=== PATIENT | female | born 1955 | race Caucasian/White ===

== ENCOUNTER 2017-03-06 11:15 | Inpatient (IN) | payer OTHER ==
--- NOTE | 2017-02-28 18:47 | HP ---
HISTORY AND PHYSICAL: DATE OF SURGERY: 03/06/17 DATE OF OFFICE VISIT: 02/26/17 ATTENDING SURGEON: Do Sierra MD * (DICTATED BY NICOLAS MACARIO) PROCEDURE: Left total knee arthroplasty. CHIEF COMPLAINT: Left knee pain. HISTORY OF PRESENT ILLNESS: Ms. Epps is a 61-year-old female with complaints of left knee pain secondary to advanced osteoarthritis. She has failed conservative management and elected to proceed with a left total knee arthroplasty, which is scheduled for 03/06/[address] Sierra. PAST MEDICAL HISTORY: Diabetes, hypertension, high cholesterol, history of breast cancer, and depression. PAST SURGICAL HISTORY: Tonsillectomy, lumpectomy x2, hernia repair, hysterectomy, and tubal ligation. CURRENT MEDICATIONS: 1. Lipitor 20 mg daily. 2. Meloxicam 50 mg daily. 3. Tramadol as needed. 4. Metformin 500 mg daily. 5. Olmesartan/hydrochlorothiazide 20/12.5 mg daily. 6. Tylenol p.r.n. ALLERGIES: To PENICILLIN. FAMILY HISTORY: Colon cancer, diabetes, hypertension. 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 She does not smoke, use drugs or alcohol. REVIEW OF SYSTEMS: A complete 14 point review of systems was reviewed with the patient. It is positive for diabetes. She denies history of DVT, PE, hepatitis C, HIV or MRSA. PHYSICAL EXAMINATION GENERAL: She is well developed, well nourished, no acute distress. VITAL SIGNS: She stands 5 feet 2 inches tall, weighs 265 pounds, blood pressure 132/82, and her heart rate is 76. HEENT: Normocephalic, atraumatic. NECK: Supple. No palpable lymph nodes. CARDIAC: Regular rate and rhythm. Strong S1, S2. PULMONARY: The lungs are clear to auscultation bilaterally. ABDOMEN: Soft, nontender, nondistended. MUSCULOSKELETAL: Left lower extremity skin is intact. No open wounds or abrasions. 10 to 120 degrees of flexion. No varus or valgus instability. Tenderness over the medial joint line. 5/5 lower extremity strength. Intact sensation and 2+ dorsalis pedis pulses. NEUROLOGICAL: Alert and oriented x3. Cranial nerves II through XII are intact. ASSESSMENT AND PLAN: Ms. Epps is a 61-year-old female with complaints of left knee pain secondary to advanced osteoarthritis. She has failed conservative management and elected to proceed with a left total knee arthroplasty, which is scheduled for 03/06/[address] Sierra discussed the risks and benefits of the surgery and all of her questions were answered. Coumadin, Percocet, and Colace were sent to her pharmacy for postoperative pain control and DVT prophylaxis. She will see Dr. Sierra back 2 weeks after the surgery. NICOLAS MACARIO [id number]/[facility] #: [id number] [facility] HAYES HOSPITALJuan M
[~2017-03-06 11:15] MED LIST: Buffered Lidocaine 0.9% SYRIN* 5 ML/SYR SYRINGE INTRADERM ONE; Buffered Lidocaine 0.9% SYRIN* 5 ML/SYR SYRINGE ONE; Clindamycin 900 MG IVPREMIX(* 900 MG/50 ML SDV IV ONE; DiMENhydriNATE IV* 50 MG/ML VIAL IV PUSH PRN; Famotidine IV* 10 MG/ML 2 ML (20 mg) IV ONE; Famotidine IV* 10 MG/ML 2 ML (20 mg) ONE; PROCHLORPERAZINE INJ 5 MG/ML 2 ML VIAL IV PRN; Scopolamine 1.5 mg* PATCH TRANSDERM PRN
[2017-03-06] MEDS ORDERED: Midazolam* 1 MG/ML 5 ML VIAL (5 MG) ONE (12:21)
[2017-03-06] MEDS ORDERED: KETAMINE HCL* 50 MG/ML 10 ML VIAL ONE (12:21)
[2017-03-06] MEDS ORDERED: fentaNYL* 50 MCG/ML 2 ML VIAL (100 MCG VIAL) ONE ×3 (12:21→18:16)
[2017-03-06] MEDS ORDERED: Morphine PF AMP (0.5MG/ML)* 5 MG/10 ML AMP ONE (12:21)
[2017-03-06] MEDS ORDERED: Midazolam* 1 MG/ML 2 ML VIAL (2 MG) ONE (13:59)
[2017-03-06] MEDS ORDERED: Bupivacaine 0.25% SDV* 30 ML ONE (14:22)
[2017-03-06] MEDS ORDERED: PROCHLORPERAZINE INJ 5 MG/ML 2 ML VIAL ONE (14:22)
[2017-03-06] MEDS ORDERED: Lidocaine 2% PF * 5 ML VIAL ONE (14:22)
[2017-03-06] MEDS ORDERED: Ondansetron INJ* 2 MG/ML VIAL ONE (14:22)
[2017-03-06] MEDS ORDERED: Propofol* 10 MG/ML 20 ML BTL IV PUSH ONE (14:22)
[2017-03-06] MEDS ORDERED: Morphine INJ* 10 MG/ML 1 ML CARPUJECT ONE ×2 (14:26→18:16)
[2017-03-06] MEDS ORDERED: Bisacodyl SUPP* 10 MG SUPP PR PRN (16:32)
[2017-03-06] MEDS ORDERED: Ondansetron INJ* 2 MG/ML VIAL IV PRN (16:32)
[2017-03-06] MEDS ORDERED: Morphine INJ* 2 MG/ML 1 ML SYRINGE (TWO MG - NEW SYRINGE VERSION) IV PRN (16:32)
[2017-03-06] MEDS ORDERED: oxyCODONE/Acetamin 5/325 MG* TAB PO PRN (16:32)
[2017-03-06] MEDS ORDERED: Ondansetron TAB* 4 MG PO PRN (16:32)
[2017-03-06] MEDS ORDERED: diPHENhydraMINE IV* 50 MG/ML 1 ml VIAL (BENADRYL) IV PRN (16:32)
[2017-03-06] MEDS ORDERED: Polyethylene Glycol 3350* 17 GM PACKET PO PRN (16:32)
[2017-03-06] MEDS ORDERED: Acetaminophen TAB* 325 MG PO PRN (16:32)
[2017-03-06] MEDS ORDERED: Cyclobenzaprine TAB* 10 MG PO PRN (16:36)
[2017-03-06] MEDS ORDERED: Phenylephrine INJ* 10 MG/ML 1 ML VIAL (10 MG) ONE (16:45)
[2017-03-06] MEDS ORDERED: Ketorolac INJ* 30 MG/ML 1 ML VIAL ONE (17:27)
[2017-03-06] MEDS ORDERED: oxyCODONE/Acetamin 5/325 MG* TAB ONE (18:16)
[2017-03-06] MEDS ORDERED: Dextrose 50% Syringe 50 ML* 25 GM/50 ML SYRINGE IV PUSH PRN (18:20)
[2017-03-06] MEDS: fentaNYL* 50 MCG/ML 2 ML VIAL (100 MCG VIAL) IV PRN ×4 (18:25→19:59)
[2017-03-06] MEDS: Morphine INJ* 2 MG/ML 1 ML CARPUJECT IV PRN ×2 (18:45→19:07)
--- NOTE | 2017-03-06 19:25 | RAD ---
INDICATION: Left total knee arthroplasty COMPARISON: Preoperative knee radiograph January 01, 2017 TECHNIQUE: 2 views of the left knee and 2 views of the left tibia were obtained. FINDINGS: There is been interval placement of an anatomically aligned left knee prosthesis. A surgical drain is noted. The visualized bones are intact and appropriately aligned. IMPRESSION: Anatomic alignment of recently installed left knee prosthesis with expected postsurgical changes.
--- NOTE | 2017-03-06 20:05 | RAD ---
CPT II Codes: 6045F INDICATION: Left knee arthroplasty TECHNIQUE: Intraoperative fluoroscopy was provided during left knee arthroplasty. FINDINGS: 4 spot films depict a left knee prosthesis. Fluoroscopy time: 5.3 seconds IMPRESSION: As above.
[2017-03-06] MEDS: Docusate CAP* 100 MG PO SCH (20:46)
[2017-03-06] MEDS ORDERED: Warfarin TAB(*) 6 MG PO ONE (21:00)
--- NOTE | 2017-03-06 21:56 | CONS ---
CC: Dr. Champion; Dr. Sierra * CONSULTATION REPORT: DATE OF CONSULT: 03/06/17 PRIMARY CARE PROVIDER: Dr. Champion. REQUESTING PHYSICIAN: Dr. Sierra. ATTENDING PHYSICIAN WHILE IN THE HOSPITAL: Rashawn Cheung MD (report dictated by Hossein Plascencia NP) REASON FOR MEDICAL CONSULT: Evaluation and medical management of comorbid medical conditions. HISTORY OF PRESENT ILLNESS: I will refer you to Dr. Sierra's H and P for further details. In short, Ms. Epps is a 61-year-old female patient who has a history of morbid obesity, diabetes, back pain, depression, breast cancer, hyperlipidemia, and hypertension, who came in to the care of Dr. Sierra's service because she was experiencing a significant amount of left knee pain. The patient had failed conservative therapy and it was felt that she would benefit from a total knee replacement which she underwent today. The patient was evaluated in the PACU. She states that her knee feels tight and she does feel a little lightheaded, but she denies having any chest pain. She denies having any shortness of breath. She denies having any abdominal pain. She denies feeling nauseated. She states she does not feel chest pain. She states that she is feeling well. She states she is just having some pain in her knee. She did undergo general anesthesia with a nerve block. Because of her medical complexity, we were asked to evaluate in consult. PAST MEDICAL HISTORY: Significant for: 1. Diabetes. 2. Breast cancer. 3. Hyperlipidemia. 4. Hypertension. 5. Back pain. 6. Depression. PAST SURGICAL HISTORY: She has had a total abdominal hysterectomy with bilateral salpingo-oophorectomy, tonsillectomy, lumpectomy, hernia repair and recently today had left total knee replacement. HOME MEDICATIONS: According to the list that was provided preoperatively includes: 1. Tramadol one to two tablets every 6 hours as needed. 2. Glucophage 500 mg daily. 3. Olmesartan/amlodipine one tablet p.o. daily. 4. Mobic 15 mg p.o. daily. 5. Lipitor 20 mg daily. 6. Tylenol two tablets p.o. b.i.d. as needed. ALLERGIES: To medications include PENICILLIN. FAMILY HISTORY: Mother had a history of diabetes. Father had colon cancer. SOCIAL HISTORY: She does not smoke, does not drink. Surrogate decision maker is her son, Rey. REVIEW OF SYSTEMS: There is no documented fever. She denied having any significant weight change. No double vision. No ear discharge. No rhinorrhea. No sore throat. No thyroid enlargement. Denied having any chest pain. There was no orthopnea, no nocturnal dyspnea. There is no abdominal pain. No nausea or vomiting. No dysuria, no frequency. There has been no seizure. No loss of consciousness. No pruritus and no skin ulcerations. Review of 14 systems completed, all others negative. PHYSICAL EXAM: Vital Signs: Blood pressure initially preop was 152/82 with pulse 80, respirations 18, O2 sat 96%, temperature 96.8. Blood pressure now is 103/70 with pulse of 60, respirations 12, O2 sat 100% on 2 L. General: At this time, Ms. Epps is a 61-year-old female patient. She is sitting in the PACU bed. She does not appear to be in any acute distress. She will awaken to her name. She is alert and oriented x3. She appears well nourished, well developed. HEENT: Head is atraumatic, normocephalic. Eyes: EOMs intact. Sclerae anicteric, not pale. Throat: Oral mucosa appears to be moist. No oropharyngeal erythema. Neck: Supple. Lungs: Clear to auscultation bilaterally. No wheezes, rales, or rhonchi. Heart: Sounds, S1 S2. Regular rate and rhythm. No murmurs, rubs, or gallops. Abdomen: Soft, flat. Bowel sounds were hypoactive. Extremities: Pulses were 2+ throughout. She is able to move the upper extremities with 5/5 strength. She does have distal CSM checks intact to the left lower extremity. Neurologically, she is drowsy, but she awakens to her name. She is alert, she is oriented. When she does awaken, she is oriented x3. Auto Parker equal. Tongue midline. No gross focal motor deficits. Skin: Intact with the exception she has an incision to the left knee which is covered with BELLE dressing. Hemovac drain intact. Skin is otherwise grossly intact. DIAGNOSTIC STUDIES/LAB DATA: Preop: WBC of 7.4, RBC of 4.8, serial hemoglobin 13.2, hematocrit of 41, and platelet count of 274,000. INR 0.91. Sodium 138, potassium is 3.6, chloride of 102, bicarb 27. BUN 18. Creatinine 0.84. Glucose of 88. Urine preop negative. She did have a preop EKG, difficult tracing because its scanned but it shows sinus rhythm. No gross ST elevations or T-wave inversions. Chest x-ray preop showed possible infiltrate in the medial right lung base versus pericardial fat pad suggested on lateral chest x-ray. Old medical records reviewed. ASSESSMENT AND PLAN: Ms. Epps is a 61-year-old female patient coming into the orthopedic services today for elective total knee replacement. We were asked to evaluate in consult due to the medical complexity and our recommendations at this point are: 1. Status post left total knee replacement. I will defer the management of this to Dr. Sierra and her team. 2. Diabetes. We will put her on lispro sliding scale. 3. Chronic pain. She has p.r.n. narcotics made available to her. 3. Depression. Supportive care will be maintained. 4. History of breast cancer. Follow up with primary. 5. Hyperlipidemia. Continue statin therapy. 6. Hypertension. In the immediate postoperative setting, we will hold her medications and we will restart these slowly when her blood pressure is able to tolerate this. 7. DVT prophylaxis. Defer to the primary team. 8. Fluids, electrolytes, and nutrition. I would recommend a consistent carb diet. 9. Code status: Full code. TIME SPENT: On the consult was 60 minutes, greater than half that time was spent [id number] with the patient obtaining history and physical, the other half time was spent going over the plan of care with the patient and implementing the plan of care. I did discuss plan of care with my attending, Dr. Cheung; he is in agreement. HOSSEIN PLASCENCIA, ADDI [id number]/[facility] #: [id number] HENRY
[2017-03-06] MEDS: Clindamycin 600 MG IVPREMIX(* 600 MG/50 ML SDV IV SCH (22:37)
[2017-03-07] MEDS: oxyCODONE TAB* 5 MG TAB PO PRN ×6 (00:31→21:19)
[2017-03-07] MEDS: oxyCODONE/Acetamin 5/325 MG* TAB PO PRN ×5 (02:36→19:22)
[2017-03-07 05:29] LABS: Hematocrit 34 % (35-47); Hemoglobin 11.1 g/dl (12.0-16.0)
[2017-03-07 05:40] LABS: BUN/Creatinine Ratio 16.9 (8-20); Calcium 8.7 mg/dL (8.6-10.3); EGFR African American 90.5 (>60); EGFR Non-African American 70.4 (>60); Potassium 3.5 mmol/L (3.5-5.0)
[2017-03-07] MEDS: Clindamycin 600 MG IVPREMIX(* 600 MG/50 ML SDV IV SCH ×2 (06:18→14:22)
[2017-03-07] MEDS: Insulin LISPRO* 1 UNITS UNIT SUBCUT SCH ×3 (08:16→17:07)
--- NOTE | 2017-03-07 08:19 | PN ---
Progress Note - Progress Note Date of Service: 03/07/17 SOAP: Subjective: []Patient seen OOB in chair. No knee pain, does complain of tailbone pain with injury years ago. No radiation of pain. Groves removed this AM without urination since, no BM yet. Right calf has been tender since 02/28 after physical therapy. Denies chest pain, shortness of breath, blood clot history, nausea, dizziness or leg numbness. Objective: [] Vital Signs Temp 97.4 F 03/07/17 03:20 Pulse 80 03/07/17 03:20 Resp 20 03/07/17 08:16 BP 117/59 03/07/17 03:20 Pulse Ox 100 03/07/17 04:44 Intake & Output 03/06/17 03/07/17 03/07/17 18:59 06:59 18:59 Intake Total 2500 1623 Output Total 675 450 Balance 1825 1173 Weight 261 lb 3.2 oz Intake: IV Fluids 2500 1203 ABX - CLINDAMYCIN 53 LR 2500 1150 Oral 420 Output: Groves 675 450 Other: Estimated Blood Loss 200 Comment Laboratory Last Values Hgb 11.1 g/dl (12.0-16.0) L 03/07/17 05:06 Hct 34 % (35-47) L 03/07/17 05:06 INR (Anticoag Therapy) 1.05 (0.89-1.11) 03/07/17 05:06 Sodium 133 mmol/L (133-145) 03/07/17 05:06 Potassium 3.5 mmol/L (3.5-5.0) 03/07/17 05:06 Chloride 100 mmol/L (101-111) L 03/07/17 05:06 Carbon Dioxide 30 mmol/L (22-32) 03/07/17 05:06 Anion Gap 3 mmol/L (2-11) 03/07/17 05:06 BUN 14 mg/dL (6-24) 03/07/17 05:06 Creatinine 0.83 mg/dL (0.51-0.95) 03/07/17 05:06 Est GFR ( Amer) 90.5 (>60) 03/07/17 05:06 Est GFR (Non-Af Amer) 70.4 (>60) 03/07/17 05:06 BUN/Creatinine Ratio 16.9 (8-20) 03/07/17 05:06 Glucose 129 mg/dL (70-100) H 03/07/17 05:06 POC Glucose (mg/dL) 151 mg/dL (70-100) H 03/07/17 07:10 Calcium 8.7 mg/dL (8.6-10.3) 03/07/17 05:06 General: Calm, cooperative, no acute distress LLE: Drain pulled by Dr. Sierra this morning without complication. Dressing CDI. RLE: Mild tenderness R calf no erythema B/L LE: chronic bl lymphedema. Calves supple without erythema. Negative keisha's sign bilaterally. DF/PF intact. Sensation intact distally. MSK: Mild tenderness over tailbone midline and bilateral paraspinal, no erythema , edema or ecchymosis. Assessment: [] POD 1 s/p lEFT TOTAL knee arthroplasty 03/06, Dr. Sierra Plan: []WBAT PT/OT Lovenox, coumadin 8 mg today. - R calf tenderness likely muscular strain as onset following PT last week without change post-op. Any change or further concern consider Dopplar Continued pain control. Tailbone tenderness likely from positioning. No trauma. If worsening or new sx will revisit
[2017-03-07] MEDS: Docusate CAP* 100 MG PO SCH ×2 (08:37→21:19)
[2017-03-07] MEDS: Atorvastatin* 20 MG TAB PO SCH (08:37)
[2017-03-07] MEDS ORDERED: [UNRECOGNIZED DRUG - OTHER] PO SCH (09:00)
[2017-03-07] MEDS ORDERED: metFORMIN* 500 MG TAB PO SCH (09:00)
--- NOTE | 2017-03-07 09:24 | PN ---
Subjective Date of Service: 03/07/17 Interval History: Patient seen and examined. C/O "tailbone" pain, likely from prolonged table time during procedure yesterday. Patient states she fractured tailbone at some point and has had issues with laying or sitting in one position too long. Also states hospital socks are uncomfortable 2/2 chronic bilateral LE lymphedema. Reinforced repositioning, ambulation. States tolerating PO, no n/v, denies CP, no SOB, no urinary complaints. Objective Active Medications: Acetaminophen (Tylenol Tab*) 650 mg PO Q4H PRN Atorvastatin Calcium (Lipitor*) 20 mg PO QAM JANNET Bisacodyl (Dulcolax Supp*) 10 mg ID DAILY PRN Cyclobenzaprine HCl (Flexeril Tab*) 10 mg PO BID PRN Dextrose (D50w Syringe 50 Ml*) 12.5 gm IV PUSH .FOR FS < 60 - SS PRN Diphenhydramine HCl (Benadryl Iv*) 12.5 mg IV Q6H PRN Docusate Sodium (Colace Cap*) 100 mg PO BID JANNET Enoxaparin Sodium (Lovenox(*)) 30 mg SUBCUT Q24H JANNET Clindamycin HCl/Dextrose (Cleocin 600 Mg Ivpremix(*) Sdv) 600 mg in 50 mls @ 100 mls/hr IV Q8H JANNET Lactated Ringer's (Lactated Ringers 1000 Ml Bag*) 1,000 mls @ 100 mls/hr IV PER RATE JANNET Insulin Human Lispro (Humalog*) 0 units SUBCUT AC JANNET Lactulose (Lactulose*) 30 ml PO Q6H PRN Magnesium Hydroxide (Milk Of Magnesia Liq*) 30 ml PO Q6H PRN Morphine Sulfate (Morphine Inj (Syringe)*) 2 mg IV Q2H PRN Ondansetron HCl (Zofran Inj*) 4 mg IV Q6H PRN Ondansetron HCl (Zofran Tab*) 4 mg PO Q6H PRN Oxycodone HCl (Roxycodone Tab*) 10 mg PO Q4H PRN Oxycodone/Acetaminophen (Percocet 5/325 Tab*) 1 tab PO Q4H PRN Oxycodone/Acetaminophen (Percocet 5/325 Tab*) 2 tab PO Q4H PRN Pharmacy Profile Note (Scopolamine Patch Remove*) 1 note PATCH OFF Q72H ONE Polyethylene Glycol/Electrolytes (Miralax*) 17 gm PO DAILY PRN Vital Signs 03/07/17 03/07/17 03/07/17 06:17 07:50 08:00 Temperature 98.0 F Pulse Rate 78 Respiratory 16 16 Rate Blood Pressure 146/71 (mmHg) O2 Sat by Pulse 98 98 Oximetry 03/07/17 03/07/17 08:16 08:37 Temperature Pulse Rate Respiratory 20 18 Rate Blood Pressure (mmHg) O2 Sat by Pulse Oximetry Oxygen Devices in Use Now: None, Nasal Cannula Eyes: No Scleral Icterus, PERRLA Ears/Nose/Mouth/Throat: Mucous Membranes Moist Neck: NL Appearance and Movements; NL JVP Respiratory: Clear to Auscultation Cardiovascular: NL Sounds; No Murmurs; No JVD, - - chronic bilateral LE lymphedema Abdominal: NL Sounds; No Tenderness; No Distention Skin: No Rash or Ulcers - Surgical dressing/BELLE CDI Neurological: Alert and Oriented x 3, NL Sensation Nutrition: Taking PO's Result Diagrams: 03/07/17 05:06 03/07/17 05:06 Assess/Plan/Problems-Billing Assessment: - Patient Problems (1) Status post total left knee replacement Code(s): Z96.652 - PRESENCE OF LEFT ARTIFICIAL KNEE JOINT SNOMED Code(s): 9384129287497 Comment: - Primary POC as per ortho - Pain control as per ortho team - Weight bearing and ambulate as gurdeep - VTE prophy as per ortho team (2) Depression Code(s): F32.9 - MAJOR DEPRESSIVE DISORDER, SINGLE EPISODE, UNSPECIFIED SNOMED Code(s): 89142870 Comment: - Monitor mood, currently stable - Continue supportive care as needed (3) Diabetes mellitus Code(s): E11.9 - TYPE 2 DIABETES MELLITUS WITHOUT COMPLICATIONS SNOMED Code(s) : 72024288 Comment: - Placed on sliding scale insulin coverage which patient refused this am - Education provided on importance of maintaining optimal glucose levels during post-op period - ADA diet - BG AC and HS (4) Hypertension Code(s): I10 - ESSENTIAL (PRIMARY) HYPERTENSION SNOMED Code(s): 69279903 Comment: - Will restart Benicar today - Continue to monitor BP (5) Hyperlipemia Code(s): E78.5 - HYPERLIPIDEMIA, UNSPECIFIED SNOMED Code(s): 59903875 Comment: - Continue atorvastin in evenings (6) Morbid obesity with BMI of 45.0-49.9, adult Code(s): E66.01 - MORBID (SEVERE) OBESITY DUE TO EXCESS CALORIES; Z68.42 - BODY MASS INDEX (BMI) 45.0-49.9, ADULT SNOMED Code(s): 944257982 Comment: - Continue low fat ADA diet while inpatient (7) Lymphedema of both lower extremities Code(s): I89.0 - LYMPHEDEMA, NOT ELSEWHERE CLASSIFIED SNOMED Code(s): 34900047372970427 Comment: - May use compression sock from home on unaffected (non-surgical) extremity - Elevate legs Status and Disposition: Full Code Course: Progressing as expected. Counseling and/or Coordination of Care Minutes: Coordinated with nursing staff and orthopedic team.
--- NOTE | 2017-03-07 11:34 | OP ---
OPERATIVE REPORT: DATE OF OPERATION: 03/06/17 DATE OF : 59 ATTENDING SURGEON: Do Sierra MD DOCTOR OF PHARMACY: NICOLAS Tyler Armond did help throughout the procedure in preparation of the leg, wound retraction, manipulation of the knee, and wound closure. ANESTHESIOLOGIST: Dr. Anton. ANESTHESIA: LMA with adductor nerve block. PRE-OP DIAGNOSIS: Severe end-stage osteoarthritis of the left knee joint. POST-OP DIAGNOSIS: Severe end-stage osteoarthritis of the left knee joint with significant medial tibial plateau bone loss from chronic wear. OPERATIVE PROCEDURE: Left total knee arthroplasty with modifier for complexity of the case and morbid obesity. ESTIMATED BLOOD LOSS: 250 cc. TOURNIQUET: 104 minutes. SPECIMEN: Bone and cartilage from the left knee joint sent to Pathology. COMPLICATIONS: None. HARDWARE USED: This is cemented Alar[employer]hew total knee hardware. For the femur, a size 5 narrow left, Oxinium posterior stabilized Legion femoral component. Two packages of Simplex bone cement were used. For the tibia, a size 3 left, Legion revision tibial base plate with a 5 mm inessa-stepped medial screw on tibial wedge. For the stem, a straight 13 x 120 Press-Fit Legion stem. For the insert, an 11 mm posterior stabilized articular insert size 3-4. BRIEF HISTORY/INDICATIONS: Ms. Epps is a 61-year-old female with years of increasingly severe knee pain. The patient has suffered with morbid obesity for many years. She did lose some weight and has a gastric bypass scheduled for 2018. The patient's pain in her left knee became extremely severe and she was unable to ambulate. Radiographs showed not only [id number] arthritis, but medial bone loss along the medial tibial plateau from chronic wear. She had failed conservative treatment with antiinflammatories, pain medications, physical therapy, attempted weight loss, intraarticular injections and ambulatory assisted devices. Due to the patient's severe pain and inability to ambulate, she decided to proceed with left total knee arthroplasty. Informed consent was obtained from the patient. She understood the risks of the procedure included, but were not limited to bleeding, infection, damage to nearby structures, continued pain, need for further surgery, intraoperative fracture, nerve palsy, hardware failure, loosening, knee stiffness, loss of motion, stroke, heart attack, blood clot, and . The patient wished to proceed. The patient also wished to proceed despite the increased risk of infection, wound healing problems, and early loosening due to her morbid obesity. INTRAOPERATIVE FINDINGS: Intraoperatively, the patient was noted to have extreme degeneration of the joint with extensive osteophyte formation. She had deformation of bone along the medial femoral condyle and medial tibial plateau. The bone was worn and essentially micro-fractured along the medial tibial plateau below the fibular head making it impossible to place a primary tibial plate. Therefore, it was decided to place a medial inessa-wedge on a revision tibial baseplate with a Press-Fit stem. Due to the patient's morbid obesity and the complexity of this case, this case did last at least one hour longer than primary total knee arthroplasty. DESCRIPTION OF PROCEDURE: Ms. Epps was identified in the preanesthesia unit. Her left lower extremity was marked as the correct operative side. Informed consent was signed and placed in the chart. The patient was taken to the operating room and placed under general anesthesia with an adductor canal block. A Groves catheter was placed. Tourniquet was placed on the left thigh. Left lower extremity was prepped and draped in the usual sterile fashion. Preop time-out was made to correctly identify the patient's side and site. Appropriate perioperative antibiotics were given within 1 hour of incision. A midline incision was made with a 10-blade and carried down to the extensor mechanism. A new 10-blade was used to make a standard medial parapatellar arthrotomy. Patella was subluxed laterally. Electrocautery was used to subperiosteally elevate soft tissue off the superomedial tibia to the mid sagittal plane. It was immediately evident that there was extreme bone loss along the medial tibial plateau. The knee was flexed up. The anterior horn of the lateral meniscus was released. There was no ACL. There was extreme wear along the medial femoral condyle and extensive osteophyte formation. Rongeur was used to remove some osteophytes. A drill was used to enter the distal femur. Intramedullary distal femoral cutting guide was placed and pinned down the distal femur. Oscillating saw was used to make the appropriate distal femoral cut. Next, the external rotation guide was pinned on the distal femur and the distal femur was sized to a size 5. Size 5 multi-cutting jig was pinned down the distal femur. Oscillating saw was used to make the appropriate chamfer cuts. Next, the tibia was subluxed anteriorly. The PCL was completely released. A drill was used to enter the proximal tibia. Intramedullary tibial cutting guide was pinned down the proximal tibia. A proximal tibial cut was made taking 9 mm of lateral tibial plateau. The bone was carefully removed. Lamina automotive collision estimator was placed both medially and laterally. Any remaining meniscus was carefully removed using electrocautery. Any posterior osteophytes were removed using an curved osteotome. There were three large loose bodies in the posterior joint capsule, which were carefully removed, diameter of 0.5 cm, 0.5 cm. Next, the intramedullary canal was sequentially reamed up to size 13. A 13 reamer was left in place. The proximal canal was widened for the tibial stem. The proximal tibia was sized to a size 3. Size 3 tibial base plate with a stem was placed and had good fit. The medial tibial plateau bone loss necessitated a inessa-stepped wedge was placed. At this point, the femur was prepared, a trial left 5 narrow femoral component was impacted onto the distal femur. The box for the posterior stabilized implants was prepared using a reamer and a box cut osteotome. These implants were removed. The tibia was subluxed anteriorly. The proximal tibial stem and baseplate was placed. The inessa-wedge cutting guide was pinned down the proximal tibia. Oscillating saw and reciprocating saw were used to make the appropriate cuts. Next, a trial tibia with trial stem and medial inessa-wedge was placed and had excellent fit. Trial femur was replaced and a 9 mm insert. The knee was taken through a range of motion. There was good medial and lateral ligamentous balancing. Flexion and extension gaps are well balanced. The patella was everted. 9 mm of the patellar bone and cartilage were carefully removed using an oscillating saw. The patella was sized to size 32. Three peg holes were drilled through the size 32 guide and a 32 trial patella was placed. The knee was taken through a range of motion and had satisfactory patellofemoral tracking. All trials were carefully removed. Leaving the tibial trail in place, a keel punch was impacted in order to set the slight external rotation of the implant. All trials were carefully removed. All bony cut surfaces were copiously irrigated with sterile saline and dry. The final implants were opened and the inessa-wedge with the stem on the tibial revision base plate was assembled. Two packages of simplex bone cement were used to cement the final implant in place starting with the tibia, followed by the femur and lastly the patella. An 11 mm insert trial was placed while the knee was brought into full extension. Tourniquet was turned down at 104 minutes. The knee was copiously irrigated with sterile saline. Electrocautery was used to obtain meticulous hemostasis. Once the cement had fully cured, the insert trial was removed. Any excess cement was carefully removed from around the knee joint. Final insert chosen was an 11 mm posterior stabilized articular insert size 3-4. This was locked into the position on the tibial tray without difficulties. Stability of the insert was checked and rechecked and noted to be stable. The extensor mechanism was closed using an interrupted #1 Vicryl over a medium Hemovac drain. The rest of the incision was closed in a layered fashion using 0 and 2-0 Vicryls. Skin was closed using running 3-0 nylon. Sterile Xeroform, 4x4's, and Webril were used to cover the incision. Julio wrap and cold pack placed over this. The patient's anesthesia was reversed without difficulty and she was taken to the PACU in stable condition. [id number]/CPS #: [id number] MTDD
[2017-03-07] MEDS: Valsartan TAB* 80 MG PO SCH (11:58)
[2017-03-07] MEDS: Enoxaparin(*) 30 MG/0.3 ML SYR SUBCUT SCH (16:59)
[2017-03-07] MEDS ORDERED: Warfarin TAB(*) 4 MG PO ONE (17:00)
[2017-03-08] MEDS: oxyCODONE/Acetamin 5/325 MG* TAB PO PRN ×5 (01:34→20:53)
[2017-03-08] MEDS: oxyCODONE TAB* 5 MG TAB PO PRN ×5 (03:30→23:57)
[2017-03-08 05:26] LABS: Hematocrit 31 % (35-47); Hemoglobin 10.2 g/dl (12.0-16.0)
[2017-03-08] MEDS: Valsartan TAB* 80 MG PO SCH (08:25)
[2017-03-08] MEDS: Atorvastatin* 20 MG TAB PO SCH (08:25)
[2017-03-08] MEDS: Docusate CAP* 100 MG PO SCH ×2 (08:25→20:16)
--- NOTE | 2017-03-08 09:08 | PN ---
Progress Note - Progress Note Date of Service: 03/08/17 SOAP: Subjective: [Patient reports pain is better today. Rates as 10/23. Denies CP, SOB, L calf pain. R calf pain likely muscle strain from PT. Requesting short term placement in SNF upon D/C. Would like to go to [place].] Objective: [A and O x 3. NAD. L knee dressing changed. Surgical incision benign. Swelling and ecchymosis present -- No erythema or drainage. L calf soft, NT. R calf mildly tender - unchanged. Distal gross motor and NV function intact. Laboratory Results - last 24 hr 03/07/17 03/07/17 03/08/17 12:01 17:01 04:58 Hgb 10.2 L Hct 31 L INR (Anticoag Therapy) POC Glucose (mg/dL) 158 H 157 H 03/08/17 03/08/17 04:58 08:29 Hgb Hct INR (Anticoag Therapy) 1.67 H POC Glucose (mg/dL) 189 H Vital Signs: Temp Pulse Resp BP Pulse Ox 99.3 F 88 16 131/57 92 03/08/17 04:05 03/08/17 04:05 03/08/17 08:25 03/08/17 04:05 03/08/17 04:05 ] Assessment: [s/p L TKA POD #2] Plan: [Pain management COn't PT/OT 6 mg coumadin today Plan for D/C to SNF - [place] if possible]
[2017-03-08] MEDS: Insulin LISPRO* 1 UNITS UNIT SUBCUT SCH ×3 (10:04→17:45)
--- NOTE | 2017-03-08 11:38 | PN ---
Subjective Date of Service: 03/08/17 Interval History: HOSPITALIST PROGRESS NOTE Patient seen and examined at bedside. She c/o left knee pain. Right calf soreness is less intense, but still present. Family History: Unchanged from Admission Social History: Unchanged from Admission Past Medical History: Unchanged from Admission Objective Active Medications: Acetaminophen (Tylenol Tab*) 650 mg PO Q4H PRN PRN Reason: PAIN OR TEMPERATURE Atorvastatin Calcium (Lipitor*) 20 mg PO QAM [facility] Last Admin: 03/08/17 08:25 Dose: 20 mg Bisacodyl (Dulcolax Supp*) 10 mg AL DAILY PRN PRN Reason: constipation Cyclobenzaprine HCl (Flexeril Tab*) 10 mg PO BID PRN PRN Reason: SPASMS - MUSCLE Last Admin: 03/06/17 22:38 Dose: 10 mg Dextrose (D50w Syringe 50 Ml*) 12.5 gm IV PUSH .FOR FS < 60 - SS PRN PRN Reason: FS < 60 Diphenhydramine HCl (Benadryl Iv*) 12.5 mg IV Q6H PRN PRN Reason: PRURITIS Docusate Sodium (Colace Cap*) 100 mg PO BID [facility] Last Admin: 03/08/17 08:25 Dose: 100 mg Enoxaparin Sodium (Lovenox(*)) 30 mg SUBCUT Q24H [facility] Last Admin: 03/07/17 16:59 Dose: 30 mg Insulin Human Lispro (Humalog*) 0 units SUBCUT AC [facility] PRN Reason: Protocol Last Admin: 03/08/17 10:04 Dose: 3 units Lactulose (Lactulose*) 30 ml PO Q6H PRN PRN Reason: constipation Last Admin: 03/08/17 10:13 Dose: 30 ml Magnesium Hydroxide (Milk Of Magnesia Liq*) 30 ml PO Q6H PRN PRN Reason: constipation Morphine Sulfate (Morphine Inj (Syringe)*) 2 mg IV Q2H PRN PRN Reason: PAIN Ondansetron HCl (Zofran Inj*) 4 mg IV Q6H PRN PRN Reason: nausea Ondansetron HCl (Zofran Tab*) 4 mg PO Q6H PRN PRN Reason: NAUSEA Oxycodone HCl (Roxycodone Tab*) 10 mg PO Q4H PRN PRN Reason: SEVERE PAIN Last Admin: 03/08/17 08:25 Dose: 10 mg Oxycodone/Acetaminophen (Percocet 5/325 Tab*) 1 tab PO Q4H PRN PRN Reason: PAIN Last Admin: 03/06/17 22:38 Dose: 1 tab Oxycodone/Acetaminophen (Percocet 5/325 Tab*) 2 tab PO Q4H PRN PRN Reason: PAIN Last Admin: 03/08/17 10:03 Dose: 2 tab Pharmacy Profile Note (Scopolamine Patch Remove*) 1 note PATCH OFF Q72H ONE Stop: 03/09/17 05:47 Pharmacy Profile Note (Coumadin Daily Reminder*) 1 note FOLLOW UP 1700 [facility] Last Admin: 03/07/17 16:58 Dose: 1 note Polyethylene Glycol/Electrolytes (Miralax*) 17 gm PO DAILY PRN PRN Reason: Constipation Valsartan (Diovan Tab*) 80 mg PO DAILY [facility] Last Admin: 03/08/17 08:25 Dose: 80 mg Warfarin Sodium (Coumadin Tab(*)) 6 mg PO ONCE@1700 JANNET PRN Reason: Protocol Stop: 03/08/17 17:01 Vital Signs 03/08/17 03/08/17 03/08/17 07:17 08:25 10:03 Temperature 98.7 F Pulse Rate 89 Respiratory 16 16 16 Rate Blood Pressure 137/69 (mmHg) O2 Sat by Pulse 92 Oximetry Oxygen Devices in Use Now: None Appearance: Morbid obese lady lying in bed in [facility]. Eyes: No Scleral Icterus Ears/Nose/Mouth/Throat: Mucous Membranes Moist Neck: Trachea Midline Respiratory: Symmetrical Chest Expansion and Respiratory Effort, Clear to Auscultation Cardiovascular: RRR - Normal S1 and S2 Extremities: - - No calf tenderness on palpation Neurological: Alert and Oriented x 3, NL Muscle Strength and Tone Lines/Tubes/Other Access: Clean, Dry and Intact Peripheral IV Nutrition: Taking PO's Result Diagrams: 03/08/17 04:58 03/07/17 05:06 Assess/Plan/Problems-Billing Assessment: Mrs. Epps is a 61yo F with PMH of morbid obesity, type 2 DM, breast CA, HTN, HLD, chronic back pain, depression, admitted for elective left total knee arthroplasty. - Patient Problems (1) Status post total left knee replacement Comment: - Management as per Ortho. (2) Calf pain Comment: - Check RLE doppler. (3) Diabetes mellitus Comment: - FS< 160. - Continue Lispro SS and resume Metformin on discharge. (4) Hypertension Comment: - BP is controlled. - Continue Valsartan, resume Benicar on discharge. (5) Hyperlipemia Comment: - Continue Atorvastin. (6) DVT prophylaxis Comment: - Lovenox and Warfarin as per Ortho. (7) Full code status Status and Disposition: Inpatient. Interested in placement at [facility] for rehab.
[2017-03-08] MEDS: Enoxaparin(*) 30 MG/0.3 ML SYR SUBCUT SCH (16:44)
[2017-03-08] MEDS ORDERED: Warfarin TAB(*) 6 MG PO SCH (17:00)
[2017-03-09] MEDS: oxyCODONE/Acetamin 5/325 MG* TAB PO PRN ×4 (01:45→20:03)
[2017-03-09] MEDS: oxyCODONE TAB* 5 MG TAB PO PRN ×5 (04:48→22:55)
[2017-03-09 05:34] LABS: Hematocrit 31 % (35-47); Hemoglobin 10.1 g/dl (12.0-16.0); Mean Platelet Volume 9 um3 (7.4-10.4)
[2017-03-09] MEDS ORDERED: Scopolamine PATCH Remove* 1 NOTE MISC PATCH OFF ONE (05:46)
[2017-03-09] MEDS: Insulin LISPRO* 1 UNITS UNIT SUBCUT SCH ×3 (08:18→17:29)
[2017-03-09] MEDS: Atorvastatin* 20 MG TAB PO SCH (08:56)
[2017-03-09] MEDS: Docusate CAP* 100 MG PO SCH ×2 (08:57→19:22)
[2017-03-09] MEDS: Magnesium Hydroxide LIQ* 30 ML UDC PO PRN ×2 (08:57→19:22)
[2017-03-09] MEDS: Valsartan TAB* 80 MG PO SCH (08:57)
--- NOTE | 2017-03-09 09:03 | RAD ---
INDICATION: RIGHT calf pain. Assess for DVT. Immobility due to total knee replacement March 06, 2017. COMPARISON: March 06, 2017 radiographs. TECHNIQUE: Bustamante scale, color Doppler, and spectral analysis of the deep veins of the RIGHT lower extremity. Vessel compression, phasicity, and augmentation assessed. REPORT: The RIGHT common femoral, great saphenous, profunda femoral, partially duplicated femoral, popliteal, peroneal, and posterior tibial veins are patent. RIGHT lower extremity subcutaneous edema most prominent at the level of the knee and lower leg. No loculated soft tissue plane fluid collection evident. Patency of the LEFT common femoral vein documented. IMPRESSION: No evidence for RIGHT lower extremity deep venous thrombosis.
--- NOTE | 2017-03-09 09:16 | PN ---
Hospitalist Progress Note HOSPITALIST ADDENDUM RLE doppler negative for DVT. Diabetes is well controlled, VS are stable. Hospitalist service will sign out. Please don't hesitate to call us with any questions.
--- NOTE | 2017-03-09 11:10 | DS ---
Discharge Summary Date of Admission: 03/06/2017 Date of Discharge: 03/10/2017 Provider: Dr. Sierra Principle Diagnosis: Left total knee replacement due to severe osteoarthritis Secondary Diagnoses: See H&P Principle procedure: Left total knee replacement Consultations: Medicine, Physical therapy, Occupational therapy HPI: Refer to H&P Hospital Course: The patient was admitted on 03/06/2017 and underwent a left total knee replacement which was uncomplicated. She tolerated the procedure well and there were no complications. The patient had LMA with nerve block for anesthesia and was quite comfortable in the immediate postoperative period. On POD#1 the patients H&H was 11.1/34. Dressing was CDI, she was neurovascularly intact with good sensation distal to the right knee. She could demonstrate dorsi and plantar flexion with good strength. Participation in physical and occupational therapy was begun. Pain management was controlled with PO percocet without difficulty. On POD#2 the urinary catheter was discontinued and the patient was able to void spontaneously. The dressing was changed and the wound was found to be benign with minimal drainage and erythema. Vital signs were stable and the patient was afebrile. POD#3 bowel and bladder had normalized and the patient was cleared by physical therapy for safe discharge to home with services. She did have calf pain, and was evaluated with a venous doppler which was negative for DVT. She will continue with the exercises learned with physical therapy and will have physical therapy at [facility]. At discharge the H&H was 10/30, vital signs were stable and the INR value was 1.96. The patient was discharged with a prescription for Coumadin 2 mg. The INR will be monitored on Mondays and by [facility] and the Coumadin dose adjusted accordingly by Dr. Tillman office. The patient will resume the home medications as indicated in the discharge instructions. [place] and/or sutures will be removed in 10-14 days at appointment with Dr. Sierra. Medications at discharge: Acetaminophen (Tylenol Tab*) 650 mg PO Q4H PRN PRN Reason: PAIN OR TEMPERATURE Atorvastatin Calcium (Lipitor*) 20 mg PO QAM JANNET Cyclobenzaprine HCl (Flexeril Tab*) 10 mg PO BID PRN PRN Reason: SPASMS - MUSCLE Docusate Sodium (Colace Cap*) 100 mg PO BID JANNET Oxycodone/Acetaminophen (Percocet 5/325 Tab*) 1-2 tab PO Q3H PRN PRN Reason: PAIN Valsartan (Diovan Tab*) 80 mg PO DAILY JANNET Last Admin: 03/09/17 08:57 Dose: 80 mg Couamdin 2mg 1-3 tablets daily at 5PM orally per physician instructions Condition: Stable Disposition: [facility] with PT and PT/INR draws on Sunday and Follow up: Patient will follow up with Dr. Sierra in 10-14 days at [facility] Orthopedics Vital Signs Temp 97.8 F 03/09/17 07:19 Pulse 85 03/09/17 07:19 Resp 16 03/09/17 11:06 BP 149/79 03/09/17 07:19 Pulse Ox 96 03/09/17 07:19 Intake & Output 03/08/17 03/09/17 03/09/17 18:59 06:59 18:59 Intake Total 560 700 225 Output Total 750 325 275 Balance -190 375 -50 Intake: Oral 560 700 225 Output: Urine 750 325 275 Active Medications Generic Name Dose Route Start Last Admin Trade Name Freq PRN Reason Stop Dose Admin Acetaminophen 650 mg 03/06/17 16:32 Tylenol Tab* PO Q4H PRN PAIN OR TEMPERATURE Atorvastatin Calcium 20 mg 03/07/17 09:00 03/09/17 08:56 Lipitor* PO 20 mg QAM JANNET Administration Bisacodyl 10 mg 03/06/17 16:32 Dulcolax Supp* [place] DAILY PRN constipation Cyclobenzaprine HCl 10 mg 03/06/17 16:36 03/06/17 22:38 Flexeril Tab* PO 10 mg BID PRN Administration SPASMS - MUSCLE Dextrose 12.5 gm 03/06/17 18:20 D50w Syringe 50 Ml* IV PUSH .FOR FS < 60 - SS PRN FS < 60 Diphenhydramine HCl 12.5 mg 03/06/17 16:32 Benadryl Iv* IV Q6H PRN PRURITIS Docusate Sodium 100 mg 03/06/17 21:00 03/09/17 08:57 Colace Cap* PO 100 mg BID JANNET Administration Enoxaparin Sodium 30 mg 03/07/17 17:00 03/08/17 16:44 Lovenox(*) SUBCUT 30 mg Q24H JANNET Administration Insulin Human Lispro 0 units 03/07/17 07:30 11/24/17 08:18 Humalog* SUBCUT Not Given AC [facility] Protocol Lactulose 30 ml 03/06/17 16:32 03/08/17 10:13 Lactulose* PO 30 ml Q6H PRN Administration constipation Magnesium Hydroxide 30 ml 03/06/17 16:32 03/09/17 08:57 Milk Of Magnesia Liq* PO 30 ml Q6H PRN Administration constipation Morphine Sulfate 2 mg 03/06/17 16:32 Morphine Inj (Syringe)* IV Q2H PRN PAIN Ondansetron HCl 4 mg 03/06/17 16:32 Zofran Inj* IV Q6H PRN nausea Ondansetron HCl 4 mg 03/06/17 16:32 Zofran Tab* PO Q6H PRN NAUSEA Oxycodone HCl 10 mg 03/06/17 16:32 03/09/17 08:56 Roxycodone Tab* PO 10 mg Q4H PRN Administration SEVERE PAIN Oxycodone/Acetaminophen 1 tab 03/06/17 16:32 03/06/17 22:38 Percocet 5/325 Tab* PO 1 tab Q4H PRN Administration PAIN Oxycodone/Acetaminophen 2 tab 03/06/17 16:32 03/09/17 11:06 Percocet 5/325 Tab* PO 2 tab Q4H PRN Administration PAIN Pharmacy Profile Note 1 note 03/07/17 17:00 03/08/17 16:45 Coumadin Daily Reminder* FOLLOW UP 1 note 1700 JANNET Administration Polyethylene Glycol/Electrolytes 17 gm 03/06/17 16:32 Miralax* PO DAILY PRN Constipation Valsartan 80 mg 03/07/17 11:00 03/09/17 08:57 Diovan Tab* PO 80 mg DAILY JANNET Administration Laboratory Results - last 24 hr 03/08/17 03/08/17 03/09/17 11:29 16:47 05:02 Hgb 10.1 L Hct 31 L Plt Count 176 MPV 9 INR (Anticoag Therapy) POC Glucose (mg/dL) 154 H 143 H 03/09/17 03/09/17 05:03 07:19 Hgb Hct Plt Count MPV INR (Anticoag Therapy) 1.96 H POC Glucose (mg/dL) 125 H
--- NOTE | 2017-03-09 14:35 | PN ---
Progress Note - Progress Note Date of Service: 03/09/17 SOAP: Subjective: 61 y/o female s/p L TKA 03/[address] Sierra. Patient overall feels well, working well with PT, no complaints/ concerns. Afebrile overnight, VSS. Objective: General- well appearing, NAD, AO, sitting comfortably in chair. MSK- dressing removed, incision c/d/i, no drainage noted, 2 small areas of mild erythema around sutures, neg homans b/l, mild edema around L knee, + DF/PF b/l, PT 2+ b/l. SITLT b/l. Vital Signs Temp 97.6 F 03/09/17 11:28 Pulse 98 03/09/17 11:28 Resp 16 03/09/17 13:44 BP 128/71 03/09/17 11:28 Pulse Ox 99 03/09/17 11:28 Intake & Output 03/08/17 03/09/17 03/09/17 18:59 06:59 18:59 Intake Total 560 700 570 Output Total 750 325 575 Balance -190 375 -5 Intake: Oral 560 700 570 Output: Urine 750 325 575 Laboratory Results - last 24 hr 03/08/17 03/09/17 03/09/17 16:47 05:02 05:03 Hgb 10.1 L Hct 31 L Plt Count 176 MPV 9 INR (Anticoag Therapy) 1.96 H POC Glucose (mg/dL) 143 H 03/09/17 03/09/17 07:19 11:09 Hgb Hct Plt Count MPV INR (Anticoag Therapy) POC Glucose (mg/dL) 125 H 128 H Assessment: Stable 61 y/o female s/p L TKA 03/[address] Sierra. Plan: - DVT prophylaxis- coumadin, hold lovenox today. 2mg coumadin tonight. - Continue PT/OT - awaiting placement in [place], insurance pending. Possible D/C if approved today, otherwise likely D/C Sunday. - Continue current pain regimen. Acetaminophen (Tylenol Tab*) 650 mg PO Q4H PRN PRN Reason: PAIN OR TEMPERATURE Atorvastatin Calcium (Lipitor*) 20 mg PO QAM [facility] Last Admin: 03/09/17 08:56 Dose: 20 mg Bisacodyl (Dulcolax Supp*) 10 mg MS DAILY PRN PRN Reason: constipation Cyclobenzaprine HCl (Flexeril Tab*) 10 mg PO BID PRN PRN Reason: SPASMS - MUSCLE Last Admin: 03/06/17 22:38 Dose: 10 mg Dextrose (D50w Syringe 50 Ml*) 12.5 gm IV PUSH .FOR FS < 60 - SS PRN PRN Reason: FS < 60 Diphenhydramine HCl (Benadryl Iv*) 12.5 mg IV Q6H PRN PRN Reason: PRURITIS Docusate Sodium (Colace Cap*) 100 mg PO BID [facility] Last Admin: 03/09/17 08:57 Dose: 100 mg Insulin Human Lispro (Humalog*) 0 units SUBCUT AC [facility] PRN Reason: Protocol Last Admin: 03/09/17 11:20 Dose: Not Given Lactulose (Lactulose*) 30 ml PO Q6H PRN PRN Reason: constipation Last Admin: 03/08/17 10:13 Dose: 30 ml Magnesium Hydroxide (Milk Of Magnesia Liq*) 30 ml PO Q6H PRN PRN Reason: constipation Last Admin: 03/09/17 08:57 Dose: 30 ml Morphine Sulfate (Morphine Inj (Syringe)*) 2 mg IV Q2H PRN PRN Reason: PAIN Ondansetron HCl (Zofran Inj*) 4 mg IV Q6H PRN PRN Reason: nausea Ondansetron HCl (Zofran Tab*) 4 mg PO Q6H PRN PRN Reason: NAUSEA Oxycodone HCl (Roxycodone Tab*) 10 mg PO Q4H PRN PRN Reason: SEVERE PAIN Last Admin: 03/09/17 13:44 Dose: 10 mg Oxycodone/Acetaminophen (Percocet 5/325 Tab*) 1 tab PO Q4H PRN PRN Reason: PAIN Last Admin: 03/06/17 22:38 Dose: 1 tab Oxycodone/Acetaminophen (Percocet 5/325 Tab*) 2 tab PO Q4H PRN PRN Reason: PAIN Last Admin: 03/09/17 11:06 Dose: 2 tab Pharmacy Profile Note (Coumadin Daily Reminder*) 1 note FOLLOW UP 1700 [facility] Last Admin: 03/08/17 16:45 Dose: 1 note Polyethylene Glycol/Electrolytes (Miralax*) 17 gm PO DAILY PRN PRN Reason: Constipation Valsartan (Diovan Tab*) 80 mg PO DAILY JANNET Last Admin: 03/09/17 08:57 Dose: 80 mg Warfarin Sodium (Coumadin Tab(*)) 2 mg PO ONCE@1700 NR PRN Reason: Protocol Stop: 03/09/17 23:59
[2017-03-09] MEDS ORDERED: Warfarin TAB(*) 2 MG PO ONE (17:00)
[2017-03-10] MEDS: oxyCODONE/Acetamin 5/325 MG* TAB PO PRN ×5 (01:03→20:26)
[2017-03-10] MEDS: oxyCODONE TAB* 5 MG TAB PO PRN ×5 (03:33→22:26)
[2017-03-10 07:35] LABS: Hematocrit 30 % (35-47); Hemoglobin 9.8 g/dl (12.0-16.0)
--- NOTE | 2017-03-10 08:15 | PN ---
Progress Note - Progress Note Date of Service: 03/10/17 SOAP: Subjective: [Pt reports doing well. Pain lessening. 08/23. Has not yet done stairs with PT. Feels that if she has to stay in hospital until Sunday that maybe she'd feel like just going home.] Objective: [A and O x 3, NAD L knee dressing c/d/i. Incision benign. Distal gross motor and NV function intact. Vital Signs: Temp Pulse Resp BP Pulse Ox 98.3 F 75 17 117/66 97 03/10/17 07:46 03/10/17 07:46 03/10/17 07:46 03/10/17 07:46 03/10/17 07:46 Laboratory Results - last 24 hr 03/09/17 03/09/17 03/10/17 11:09 16:28 07:18 Hgb 9.8 L Hct 30 L INR (Anticoag Therapy) POC Glucose (mg/dL) 128 H 115 H 03/10/17 03/10/17 07:18 07:25 Hgb Hct INR (Anticoag Therapy) 1.83 H POC Glucose (mg/dL) 147 H ] Assessment: [s/p L TKA POD #4] Plan: [Con't PT Pain management 4 mg Coumadin today D/C tomorrow or Sunday. Awaiting arrangements with SNF in [place]]
[2017-03-10] MEDS: Valsartan TAB* 80 MG PO SCH (08:21)
[2017-03-10] MEDS: Atorvastatin* 20 MG TAB PO SCH (08:21)
[2017-03-10] MEDS: Docusate CAP* 100 MG PO SCH ×2 (08:21→20:26)
[2017-03-10] MEDS: Insulin LISPRO* 1 UNITS UNIT SUBCUT SCH ×3 (08:22→17:33)
[2017-03-10] MEDS ORDERED: Warfarin TAB(*) 4 MG PO ONE (17:00)
[2017-03-11] MEDS: oxyCODONE/Acetamin 5/325 MG* TAB PO PRN ×4 (02:09→21:45)
[2017-03-11] MEDS: oxyCODONE TAB* 5 MG TAB PO PRN ×2 (04:49→09:03)
[2017-03-11 05:43] LABS: Hematocrit 29 % (35-47); Hemoglobin 9.7 g/dl (12.0-16.0)
--- NOTE | 2017-03-11 08:17 | PN ---
Progress Note - Progress Note Date of Service: 03/11/17 SOAP: Subjective: [Pt. reports continued improvement. Pain becoming more manageable. She thinks she'd rather go home tomorrow than go to SNF. But she is still debating. PT is going well - has still not done stairs but has no stairs she has to navigate at home. Denies CP, SOB, calf pain.] Objective: [A and O x 3, NAD. Seated in chair eating breakfast. L knee dressing C/D/I - incision benign. Calf soft, NT. Distal NV function intact. Vital Signs: Temp Pulse Resp BP Pulse Ox 97.8 F 78 18 137/67 95 03/11/17 03:40 03/11/17 03:40 03/11/17 07:11 03/11/17 03:40 03/11/17 03:40 Laboratory Results - last 24 hr 03/10/17 03/10/17 03/11/17 11:35 17:01 05:26 Hgb 9.7 L Hct 29 L INR (Anticoag Therapy) POC Glucose (mg/dL) 101 H 139 H 03/11/17 03/11/17 05:26 07:14 Hgb Hct INR (Anticoag Therapy) 1.78 H POC Glucose (mg/dL) 140 H ] Assessment: [61 yo female s/p L TKA POD #5 doing well] Plan: [6 mg Coumadin today Con't PT and pain management D/C tomorrow to home or [facility]]
[2017-03-11] MEDS: Insulin LISPRO* 1 UNITS UNIT SUBCUT SCH ×3 (08:28→17:26)
[2017-03-11] MEDS: Docusate CAP* 100 MG PO SCH ×2 (08:29→20:39)
[2017-03-11] MEDS: Valsartan TAB* 80 MG PO SCH (08:29)
[2017-03-11] MEDS: Atorvastatin* 20 MG TAB PO SCH (08:29)
[2017-03-11] MEDS ORDERED: Warfarin TAB(*) 6 MG PO SCH (17:00)
[2017-03-12] MEDS: oxyCODONE TAB* 5 MG TAB PO PRN (00:10)
[2017-03-12] MEDS: oxyCODONE/Acetamin 5/325 MG* TAB PO PRN ×3 (05:27→15:37)
--- NOTE | 2017-03-12 08:24 | PN ---
Progress Note - Progress Note Date of Service: 03/12/17 SOAP: Subjective: []Patient seen at bedside. Her pain is tolerable but does require oxycodone PRN to control breakthrough pain. She denies chest pain, shortness of breath, nausea , leg numbness. Objective: [] Vital Signs Temp 98.5 F 03/12/17 07:25 Pulse 71 03/12/17 07:25 Resp 16 03/12/17 07:25 BP 129/76 03/12/17 07:25 Pulse Ox 96 03/12/17 07:25 Intake & Output 03/11/17 03/12/17 03/12/17 18:59 06:59 18:59 Intake Total 945 1025 Output Total 700 2000 Balance 245 -975 Intake: Oral 945 1025 Output: Urine 700 1999 Laboratory Last Values Hgb 9.7 g/dl (12.0-16.0) L 03/11/17 05:26 Hct 29 % (35-47) L 03/11/17 05:26 Plt Count 176 10^3/ul (150-450) 03/09/17 05:02 MPV 9 um3 (7.4-10.4) 03/09/17 05:02 INR (Anticoag Therapy) 1.78 (0.89-1.11) H 03/11/17 05:26 Sodium 133 mmol/L (133-145) 03/07/17 05:06 Potassium 3.5 mmol/L (3.5-5.0) 03/07/17 05:06 Chloride 100 mmol/L (101-111) L 03/07/17 05:06 Carbon Dioxide 30 mmol/L (22-32) 03/07/17 05:06 Anion Gap 3 mmol/L (2-11) 03/07/17 05:06 BUN 14 mg/dL (6-24) 03/07/17 05:06 Creatinine 0.83 mg/dL (0.51-0.95) 03/07/17 05:06 Est GFR ( Amer) 90.5 (>60) 03/07/17 05:06 Est GFR (Non-Af Amer) 70.4 (>60) 03/07/17 05:06 BUN/Creatinine Ratio 16.9 (8-20) 03/07/17 05:06 Glucose 129 mg/dL (70-100) H 03/07/17 05:06 POC Glucose (mg/dL) 140 mg/dL (70-100) H 03/12/17 07:44 Calcium 8.7 mg/dL (8.6-10.3) 03/07/17 05:06 General: OOB in chair. Well appearing and in no acute distress LLE: Dressing CDI. Incision CDI. No discharge, no surrounding erythema B/L LE: Calves supple, chronic lymphedema. Right calf tender as previous. DF/PF intact. 2+ DP/PT. Sensation intact distally. Assessment: []s/p Left total knee arthroplasty 03/06 Dr. Sierra Plan: []WBAT DC home today Coumadin 4 mg today R calf U/S negative for DVT 03/09/17
[2017-03-12] MEDS: Valsartan TAB* 80 MG PO SCH (08:28)
[2017-03-12] MEDS: Docusate CAP* 100 MG PO SCH (08:28)
[2017-03-12] MEDS: Atorvastatin* 20 MG TAB PO SCH (08:28)
[2017-03-12] MEDS: Insulin LISPRO* 1 UNITS UNIT SUBCUT SCH ×2 (08:28→11:48)
[2017-03-12 11:55] VITALS: BP 122/74
--- NOTE | 2017-03-13 06:28 | DS ---
AMENDED REPORT NOW INCLUDES COSIGNER DESIGNATION - ESIGNED BEFORE ADJUSTMENT DISCHARGE SUMMARY ADDENDUM: DATE OF ADMISSION: 03/06/17 DATE OF DISCHARGE: 03/12/17 ATTENDING PHYSICIAN: Do Sierra MD * (DICTATED BY NICOLAS WALH) HOSPITAL COURSE: On postop day 4, the patient's H and H was 9.8/30, INR was 1.83. Her left knee dressing was clean, dry and intact. Incision was benign, gross motor and neurovascular function was intact distally. Postop day 5, H and H was 9.7/29, INR was 1.78. The patient was alert and oriented x3, in no acute distress. Her left knee dressing was clean, dry and intact. Incision was benign. Calf was soft and nontender. Distal neurovascular function was intact. On postop day 6, H and H was 9.7/29, INR was 1.78. On exam, left lower extremity dressing was clean, dry and intact. Incision was clean, dry and intact without drainage. No surrounding erythema. Bilateral lower extremities, right calf was tender as previously seen. Right calf ultrasound was negative for DVT on 03/09/17. The patient has chronic lymphedema of bilateral lower extremities. Dorsiflexion and plantar flexion are intact, 2+ dorsalis pedis and posterior tibial pulses and sensation was intact distally. The patient will be discharged home today. Changes in discharge medications to note; she will be sent home with: 1. Oxycodone 5 mg tab take 1 tab p.o. t.i.d. with no less than 4 hours between doses. 2. Daily Coumadin dosing, the patient will take 4 mg 03/12, 2 mg on 03/13/17, 4 mg 03/14/17 and then recheck on 03/15/17. DISCHARGE PLAN: The patient will be going home rather than to [facility]. She does have good support at home from family to help care for her. She will take 4 mg of Coumadin 03/12. She will take 2 mg of Coumadin on 03/13/17. She will take 4 mg on 03/14/17. She has Percocet 5/325 mg at home, 1-2 tabs to be taken every 4 to 6 hours as needed. Max daily dose of 10. She also has oxycodone 5 mg 1 tab p.o. t.i.d., not to be taken more than every 4 hours if needed. Max daily dose of 3. She already has a followup with Dr. Sierra on 03/19/17. She will be going home today rather than to [facility]. NICOLAS WAHL [id number]/[facility] #: [id number] MTDD
== END 2017-03-12 16:15 | disposition home health service (06) | DRG 470 ==
LOC: AA 11:15 → SSU 20:17
PROVIDERS: ADMIT Orthopaedic Surgery Adult Reconstructive Orthopaedic Surgery; ATTEND Orthopaedic Surgery Adult Reconstructive Orthopaedic Surgery
PROC: 0SRD0J9 Replacement of Left Knee Joint with Synthetic Substitute, Cemented, Open Approach (ICD-10-PCS; principal; 2017-03-06 14:00)
DX: M17.12 Unilateral primary osteoarthritis, left knee (principal); E66.01 Morbid (severe) obesity due to excess calories; Z68.42 Body mass index [BMI] 45.0-49.9, adult; E11.9 Type 2 diabetes mellitus without complications; I10 Essential (primary) hypertension; E78.5 Hyperlipidemia, unspecified; I89.0 Lymphedema, not elsewhere classified; G89.29 Other chronic pain; M54.9 Dorsalgia, unspecified; M79.1 Myalgia; M25.762 Osteophyte, left knee; F32.9 Major depressive disorder, single episode, unspecified; Z85.3 Personal history of malignant neoplasm of breast; Z90.710 Acquired absence of both cervix and uterus; Z98.51 Tubal ligation status; Z88.0 Allergy status to penicillin; Z80.0 Family history of malignant neoplasm of digestive organs; Z83.3 Family history of diabetes mellitus; Z82.49 Family history of ischemic heart disease and other diseases of the circulatory system; Z90.722 Acquired absence of ovaries, bilateral; Z79.01 Long term (current) use of anticoagulants; Z79.4 Long term (current) use of insulin
CPT/HCPCS: 36415; 76001; 80048; 85014; 85018; 85049; 85610; 94760; A9270-GY; C1776; J0780; J1200; J1650; J1885; J2250; J2270; J2405; J2704; J3010

== ENCOUNTER 2017-07-09 09:20 | Inpatient (IN) | payer OTHER ==
--- NOTE | 2017-07-02 04:08 | HP ---
HISTORY AND PHYSICAL: DATE OF ADMISSION/SURGERY: 07/09/17 SURGEON: Do Sierra MD * (dictated by NICOLAS Macario) PROCEDURE: Right total knee arthroplasty. CHIEF COMPLAINT: Right knee pain. HISTORY OF PRESENT ILLNESS: Ms. Epps is a 61-year-old female with continued complaints of right knee pain. She has failed conservative management and has elected to proceed with a right total knee arthroscopy, which is scheduled for 07/09/[address] Sierra. PAST MEDICAL HISTORY: Hypertension, diabetes, and high cholesterol. PAST SURGICAL HISTORY: Lumpectomy, hysterectomy, hernia repair, left total knee arthroplasty, and tonsillectomy. CURRENT MEDICATIONS: 1. Meloxicam. 2. Metformin 500 mg twice a day. 3. Olmesartan/hydrochlorothiazide 20/12.5 mg daily. 4. Atorvastatin calcium 20 mg q.h.s. 5. Aleve as needed. ALLERGIES: PENICILLIN. FAMILY HISTORY: Colon cancer, diabetes, and heart disease. SOCIAL HISTORY: She is a 61-year-old female. She lives with her . 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 She does smoke, use drugs or alcohol. REVIEW OF SYSTEMS: A complete 14-point review of systems was reviewed with the patient. It was positive for diabetes. She denies history of DVT, PE, hepatitis C, HIV, or anesthesia problems. PHYSICAL EXAMINATION GENERAL: She is well developed, well nourished, in no acute distress. VITAL SIGNS: 5 feet 4 inches tall, weighs 272 pounds. Her blood pressure is 130/86, heart rate is 76. HEENT: Normocephalic, atraumatic. NECK: Supple. No palpable lymph nodes. PULMONARY: Lungs are clear to auscultation bilaterally. CARDIO: Regular rate and rhythm. Strong S1, S2. ABDOMEN: Soft, nontender, nondistended. NEUROLOGICAL: She is alert, oriented x3. Cranial nerves II through XII are intact. MUSCULOSKELETAL: Right lower extremity, skin is intact. She has no open wounds or abrasions. She has some tenderness over the medial and lateral joint line. There is a moderate joint effusion. Range of motion is 15 to 100 degrees. She has 2+ dorsalis pedis pulses, intact sensation and her lower extremity muscle group strengths are intact at 5/5. ASSESSMENT AND PLAN: Ms. Epps is a 61-year-old female with continued complaints of right knee pain secondary to end-stage osteoarthritis. She has failed conservative management, elected to proceed with a right total knee arthroplasty, which is scheduled for 07/09/[address] Sierra discussed the risks and benefits of the surgery at today's visit and all of her questions were answered. Coumadin, Colace, and Percocet were sent to her pharmacy for postoperative pain control and DVT prophylaxis. NICOLAS MACARIO [id number]/[facility] #: [id number] HENRY
[~2017-07-09 09:20] MED LIST changes: -Buffered Lidocaine 0.9% SYRIN* 5 ML/SYR SYRINGE ONE; -DiMENhydriNATE IV* 50 MG/ML VIAL IV PUSH PRN; +Gabapentin CAP(*) 300 MG ONE; +Gabapentin CAP(*) 300 MG PO ONE; +Midazolam* 1 MG/ML 5 ML VIAL (5 MG) ONE; -PROCHLORPERAZINE INJ 5 MG/ML 2 ML VIAL IV PRN; -Scopolamine 1.5 mg* PATCH TRANSDERM PRN; +fentaNYL* 50 MCG/ML 2 ML VIAL (100 MCG VIAL) ONE
[2017-07-09] MEDS ORDERED: Buffered Lidocaine 0.9% SYRIN* 5 ML/SYR SYRINGE ONE (09:35)
[2017-07-09] MEDS ORDERED: Lidocaine 2% PF * 5 ML VIAL ONE ×2 (10:40→11:25)
[2017-07-09] MEDS ORDERED: ROPIVACAINE 5 MG/ML 30 ML BTL (0.5%) ONE (10:40)
[2017-07-09] MEDS ORDERED: oxyCODONE/Acetamin 5/325 MG* TAB PO PRN (10:45)
[2017-07-09] MEDS ORDERED: Bisacodyl SUPP* 10 MG SUPP PR PRN (10:45)
[2017-07-09] MEDS ORDERED: diPHENhydraMINE IV* 50 MG/ML 1 ml VIAL (BENADRYL) IV PRN (10:45)
[2017-07-09] MEDS ORDERED: Ondansetron TAB* 4 MG PO PRN (10:45)
[2017-07-09] MEDS ORDERED: Magnesium Hydroxide LIQ* 30 ML UDC PO PRN (10:45)
[2017-07-09] MEDS ORDERED: Polyethylene Glycol 3350* 17 GM PACKET PO PRN (10:45)
[2017-07-09] MEDS ORDERED: Cyclobenzaprine TAB* 10 MG PO PRN (10:45)
[2017-07-09] MEDS ORDERED: Morphine INJ* 2 MG/ML 1 ML CARPUJECT IV PRN (10:45)
[2017-07-09] MEDS ORDERED: Acetaminophen TAB* 325 MG PO PRN (10:45)
[2017-07-09] MEDS ORDERED: Ondansetron INJ* 2 MG/ML VIAL IV PRN (10:45)
[2017-07-09] MEDS ORDERED: Ketorolac INJ* 30 MG/ML 1 ML VIAL ONE (11:25)
[2017-07-09] MEDS ORDERED: Propofol* 10 MG/ML 20 ML BTL IV PUSH ONE (11:25)
[2017-07-09] MEDS ORDERED: Ondansetron INJ* 2 MG/ML VIAL ONE (11:25)
[2017-07-09] MEDS ORDERED: Dexamethasone IV* 4 MG/ML 1 ML (4 MG) ONE (11:25)
[2017-07-09] MEDS ORDERED: DiMENhydriNATE IV* 50 MG/ML VIAL ONE (11:25)
[2017-07-09] MEDS ORDERED: fentaNYL* 50 MCG/ML 2 ML VIAL (100 MCG VIAL) ONE (11:40)
[2017-07-09] MEDS ORDERED: Acetaminophen IV 1GM/100ML * 1,000 MG/100 ML VIAL IVPB ONE (12:05)
[2017-07-09] MEDS ORDERED: DiMENhydriNATE IV* 50 MG/ML VIAL IV PUSH PRN (12:05)
[2017-07-09] MEDS ORDERED: Naloxone* 0.4 MG/ML 1 ML VIAL IV PRN (12:05)
[2017-07-09] MEDS ORDERED: HYDROmorphone INJ* 1 MG/ML CARPUJECT SYRINGE IV PRN (12:05)
[2017-07-09] MEDS ORDERED: Gabapentin CAP(*) 100 MG PO ONE (12:07)
[2017-07-09] MEDS ORDERED: Bupivacaine 0.5% SDV PF* 10-30ML VIAL ONE (12:15)
[2017-07-09] MEDS ORDERED: HYDROmorphone INJ* 1 MG/ML CARPUJECT SYRINGE ONE ×2 (13:26→13:53)
[2017-07-09] MEDS ORDERED: Dextrose 50% Syringe 50 ML* 25 GM/50 ML SYRINGE IV PUSH PRN (14:43)
[2017-07-09] MEDS ORDERED: Acetaminophen IV 1GM/100ML * 100 ML ONE (15:02)
[2017-07-09] MEDS ORDERED: HYDROmorphone INJ* 2 MG/ML CARPUJECT SYRINGE ONE (15:02)
--- NOTE | 2017-07-09 15:20 | RAD ---
INDICATION: Right total knee replacement COMPARISON: June 29, 2017 TECHNIQUE: AP and lateral views were obtained. FINDINGS: There is interval right knee arthroplasty. Both femoral and tibial components appear well seated. There is a cooling jacket surgical drain. IMPRESSION: RIGHT KNEE ARTHROPLASTY. NO EVIDENCE OF HARDWARE FAILURE.
[2017-07-09] MEDS ORDERED: oxyCODONE TAB* 5 MG TAB ONE ×2 (15:24→15:46)
[2017-07-09] MEDS: oxyCODONE TAB* 5 MG TAB PO PRN ×3 (15:25→20:48)
[2017-07-09] MEDS ORDERED: Gabapentin CAP(*) 100 MG ONE (15:53)
[2017-07-09] MEDS ORDERED: Warfarin TAB(*) 6 MG PO ONE (18:00)
[2017-07-09] MEDS: oxyCODONE/Acetamin 5/325 MG* TAB PO PRN (18:18)
[2017-07-09] MEDS: Insulin LISPRO* 1 UNITS UNIT SUBCUT SCH (18:18)
[2017-07-09] MEDS: Clindamycin 600 MG IVPREMIX(* 600 MG/50 ML SDV IV SCH (20:44)
[2017-07-09] MEDS: Docusate CAP* 100 MG PO SCH (20:48)
[2017-07-09] MEDS: Magnesium Hydroxide LIQ* 30 ML UDC PO SCH (20:50)
[2017-07-10] MEDS: oxyCODONE/Acetamin 5/325 MG* TAB PO PRN ×6 (00:04→22:57)
[2017-07-10] MEDS: oxyCODONE TAB* 5 MG TAB PO PRN ×5 (03:31→20:58)
[2017-07-10] MEDS: Clindamycin 600 MG IVPREMIX(* 600 MG/50 ML SDV IV SCH ×2 (03:33→12:36)
--- NOTE | 2017-07-10 03:47 | CONS ---
CC: Dr. Champion; Dr. Sierra * CONSULTATION REPORT: DATE OF CONSULT: 07/09/17 PRIMARY CARE PROVIDER: Dr. Champion. REQUESTING PHYSICIAN IN CONSULT: Dr. Sierra. MY ATTENDING PHYSICIAN WHILE IN THE HOSPITAL: Cathleen Kurtz DO (report dictated by Hossein Plascencia NP) REASON FOR MEDICAL CONSULT: Evaluation and medical management of comorbid medical conditions. HISTORY OF PRESENT ILLNESS: Ms. Epps is a 61-year-old female patient. I will refer you to Dr. Sierra's H and P for further details. She has a history of diabetes, hypertension, hyperlipidemia. She had significant trouble initially with her left knee. She underwent the replacement of that in the fall this year. The right knee has been quite bothersome to her and she has been dealing with this through conservative management. She was followed closely by Dr. Sierra. It was felt that she would benefit from a replacement, so she underwent this today. Again, there is a history of diabetes, hyperlipidemia , hypertension, back pain and depression. She was evaluated in the PACU. She states she is not feeling lightheaded or short of breath. She denies having any chest pain now. She states she just feels anxious. She denies feeling any nausea or vomiting. She says the pain is controlled in her right knee at this point, but she really is not offering any complaints with the exception that she just feels anxious, but specifically denied any shortness of breath, chest pain, or abdominal discomfort. Because of her medical complexity, we were asked to evaluate in consult. PAST MEDICAL HISTORY: Significant for: 1. Diabetes. 2. Hyperlipidemia. 3. Hypertension. 4. Back pain. 5. History of depression. 6. Arthritis. PAST SURGICAL HISTORY: She has had the left total knee replacement. She has had also had a hysterectomy, lumpectomy, hernia repair, tubal ligation, tonsillectomy. HOME MEDICATIONS: According to the list that was provided preoperatively includes: 1. Aleve 440 mg p.o. daily. 2. Olmesartan/amlodipine/hydrochlorothiazide 1 tablet daily. 3. Metformin 500 mg p.o. daily. 4. Lipitor 20 mg p.o. daily. ALLERGIES: To medications include PENICILLIN. FAMILY HISTORY: Mother was diabetic. Father had a history of colon cancer. SOCIAL HISTORY: She does not smoke, does not drink. Surrogate decision maker is her . REVIEW OF SYSTEMS: There is no documented fever. She denied having any significant weight change. There is no double vision. There is no ear discharge. She denies having any rhinorrhea. There is no sore throat. No thyroid enlargement. Denied having any chest pain. There is no orthopnea, no nocturnal dyspnea. There is no abdominal pain. No nausea, no vomiting. No dysuria, no frequency. No seizure. No loss of consciousness. No pruritus and no skin ulcerations. Review of 14 systems completed, all others negative. PHYSICAL EXAM: Vital Signs: Blood pressure 119/78, pulse 67, respirations 16, O2 sat 100% on 4 L, temperature 97.5. General: At this time, Ms. Epps is a 61- year-old female patient. She is sitting in the PACU bed. She does not appear to be in any acute distress. HEENT: Head is atraumatic, normocephalic. Eyes: EOMs intact. Sclerae anicteric, not pale. Throat: Oral mucosa appears to be moist. No oropharyngeal erythema. Neck: Supple. Lungs: Clear to auscultation bilaterally. No wheezes, rales, or rhonchi. Heart: Sounds S1 , S2. Regular rate and rhythm. No murmurs, rubs, or gallops. Abdomen: Soft, flat, nontender. Bowel sounds were hypoactive. Extremities: Distal CSM checks were intact to the right lower extremity. She is moving her upper extremities with 5/5 strength. She is moving left lower extremity with 5/5 strength. She has difficulty moving the right extremity because this is the operated leg. Neurologically, she is awake, alert, oriented x3. She had no gross focal motor deficits. Skin: Intact with the exception to the right knee , she has an Julio dressing with a Hemovac. This is clean, dry, and intact. DIAGNOSTIC STUDIES/LAB DATA: Preop WBC of 6.2, RBC of 5.22, hemoglobin 13.5, hematocrit of 41, platelet count of 232,000. INR was 0.94. Sodium was 135, potassium was 3.7, chloride of 102, bicarb of 22. BUN 26, creatinine 0.81. Glucose of 169. AST 15, ALT 13. Urine obtained preoperatively was negative. She had preop EKG, difficult to interpret because this is an old copy, but it appears to be a normal sinus rhythm with no gross ST elevations or T-wave inversions. Old medical records were reviewed. She did have a chest x-ray preop as well which shows no active disease. ASSESSMENT AND PLAN: Ms. Epps is a 61-year-old female patient coming into the orthopedic services today for an elective right total knee. We were asked to evaluate in consult and our recommendations at this point are: 1. Status post right total knee replacement. I will defer the management of this to Dr. Sierra and her team. 2. Diabetes. I have ordered a lispro sliding scale. 3. Hypertension. She is on triple antihypertensives in the form of olmesartan , hydrochlorothiazide, and Norvasc. I am going to hold the diuretic and the JULIO inhibitor. This can be restarted as the blood pressure tolerates, but I will go ahead and continue the Norvasc for the time being. 4. Hyperlipidemia. Continue statin therapy. 5. History of depression. Continue with supportive care. 6. History of chronic back pain. Continue with current medical regimen. 7. Arthritis. Follow up with her PCP. 8. DVT prophylaxis. I will defer to the primary team. 9. Code status: She is a full code. 10. Fluids, electrolytes, and nutrition. I would recommend a consistent carb diet. TIME SPENT: On the consult was approximately 60 minutes, greater than half that time was spent [id number] with the patient obtaining my history and physical, the other half time was spent going over the plan of care with the patient and implementing the plan of care. I did discuss plan of care with my attending, Dr. Kurtz; she is in agreement. HOSSEIN PLASCENCIA, ADDI [id number]/[facility] #: [id number] HENRY
--- NOTE | 2017-07-10 04:38 | OP ---
DATE OF OPERATION: 07/09/17 - ROOM #343 DATE OF : 59 SURGEON: Do Sierra MD INDUSTRIAL SPRAYPAINTER: NICOLAS Casey. Ms. Benjamin did help throughout the procedure with preparation of the leg, wound retraction, manipulation of the knee, and wound closure. ANESTHESIOLOGIST: Dr. Gonzales. ANESTHESIA: General. PRE-OP DIAGNOSIS: Severe end-stage degenerative osteoarthritis of the right knee joint. POST-OP DIAGNOSIS: Severe end-stage degenerative osteoarthritis of the right knee joint. OPERATIVE PROCEDURE: Right total knee arthroplasty. TOURNIQUET TIME: 60 minutes. ESTIMATED BLOOD LOSS: 300 cc. COMPLICATIONS: None. SPECIMENS: Bone and cartilage from the right knee joint. HARDWARE USED: This is a cemented Alar[employer] Nephew total knee arthroplasty hardware. Two packages of Simplex bone cement. For the femur, a size 5 narrow right Legion Oxinium femoral component. For the tibia, a size 4 right tibial base plate Casandra II. For the insert, a 15 mm posterior stabilized articular insert, size 3-4. For the patella, a 32-mm 3-peg all poly patella. BRIEF HISTORY/INDICATIONS: Ms. Epps is a 61-year-old female with years of increasingly severe right knee pain. She failed conservative treatment with anti- inflammatories, pain medication, intraarticular injections, and physical therapy. Radiographs showed severe [id number] arthritis with deformation of the medial tibial plateau due to chronic wear. Due to continued pain and decreased quality of life, the patient elected to proceed with right total knee arthro-plasty. Informed consent was obtained from the patient. She understood the risks of the surgery included, but were not limited to, bleeding, infection , damage to nearby structures, continued pain, need for further surgery, intraoperative fracture, nerve palsy, hardware failure, loosening, knee stiffness, loss of motion, stroke, heart attack, blood clot, and . Due to her morbid obesity, the patient accepted the increased risk of infection, wound healing problems, and early loosening. INTRAOPERATIVE FINDINGS: Intraoperatively, the patient was noted to have extensive osteophyte formation around the entire femur and tibia. The medial tibial plateau had extensive wear and subchondral sclerosis due to chronic wear. DESCRIPTION OF PROCEDURE: Ms. Epps was identified in the preanesthesia unit. Her right lower extremity was marked as the correct operative side. Informed consent was signed and placed in the chart. The patient was taken to the operating room and placed under general anesthesia. A Groves catheter was placed. Tourniquet was placed on the right thigh. Right lower extremity was prepped and draped in the usual sterile fashion. Preop time-out was made to correctly identify the patient's side and site. Appropriate perioperative antibiotics were given within 1 hour of incision. Tourniquet was inflated until the tourniquet time for this procedure was 60 minutes. A midline incision was made with a 10 blade and carried down through the skin. Electrocautery was used to dissect down through the subcutaneous fat which was at least 6 cm in width. New 10 blade was used to make a standard medial parapatellar arthrotomy. The patella was subluxed laterally. Intramedullary distal femoral cutting guide was pinned on the distal femur. Oscillating saw was used to make the appropriate distal femoral cut. Next, the external rotation guide was pinned on the distal femur. Distal femur was sized to size 5. Size 5 multi-cutting jig was pinned on the distal femur. Oscillating saw was used to make the appropriate 4 chamfer cuts. The PCL was completely released and the tibia was subluxed anteriorly. Intramedullary tibial cutting guide was pinned on the proximal tibia. The oscillating saw was used to make the appropriate proximal tibial cut. This was made perpendicular to the mechanical axis of the tibia. This cut barely skimmed the medial tibial plateau due to chronic wear. The bone was carefully removed. The knee was brought out into full extension. Spacer block had good fit. Medial and lateral ligaments were well balanced. Flexion and extension gaps were well balanced. The knee was flexed up. Lamina foot drill operator was placed both medially and laterally. Any remaining meniscus was carefully removed from the knee joint. Curved osteotome was used to remove posterior osteophytes. Several loose bodies were also identified and removed. Tibial tray and drop carolina showed satisfactory proximal tibial cut. A size 5 narrow right femoral trial was impacted on to the distal femur and had good fit. The box for the posterior stabilized implant was prepared using a reamer and box cut osteotome. Size 4 tibial tray trial with an 11 mm insert trial was placed. The knee was taken through a range of motion. There was some laxity medially and laterally. A 13 insert trial was placed. The knee was taken through a range of motion and had more stability. The patella was everted. 9 mm of patellar bone and cartilage was carefully removed with an oscillating saw. Patella was sized to a size 32. Three peg holes were drilled through the size 32 guide. 32 trial patella was placed and the knee was taken through a range of motion. Patellofemoral tracking was satisfactory. All trials were carefully removed. The tibia was subluxed anteriorly and sized to a size 4. Proximal tibia was prepared using a size 4 keel punch. All bony cut surfaces were copiously irrigated with sterile saline and dried. Final implants were cemented into place starting with the tibia followed by the femur and last the patella. A 15 mm insert trial was placed and the knee was taken out into full extension. Tourniquet was turned down at 60 minutes. The knee was copiously irrigated with sterile saline. Electrocautery was used to obtain meticulous hemostasis. Once the cement had fully cured, the insert trial was removed. Any excess cement was removed from around the hardware and the capsule. Final implant chosen was a 15 mm posterior stabilized articular insert size 3-4. This was locked into position on the tibial tray without difficulty. Stability of the insert was checked and rechecked and noted to be stable. The knee was once again copiously irrigated with sterile saline. Extensor mechanism was closed over a medium Hemovac drain using interrupted #1 Vicryls. The rest of the incision was closed in a layered fashion using 0 and 2-0 Vicryls. Skin was closed using running 3-0 nylon suture. Sterile Xeroform, 4x4 , and Webril were used to cover the incision. Julio wrap and cold pack were placed over this. The patient's anesthesia was reversed without difficulty. She was taken to the PACU in stable condition. Intended weightbearing will be weightbearing as tolerated. Intended DVT prophylaxis will be Coumadin with a Lovenox bridge. [id number]/[facility] #: [id number] HENRY
[2017-07-10 05:54] LABS: Hematocrit 32 % (35-47); Hemoglobin 10.5 g/dl (12.0-16.0); Platelet Count 188 10^3/ul (150-450)
[2017-07-10 06:11] LABS: EGFR Non-African American 70.4 (>60)
[2017-07-10] MEDS: Docusate CAP* 100 MG PO SCH ×2 (08:05→20:57)
[2017-07-10] MEDS: Magnesium Hydroxide LIQ* 30 ML UDC PO SCH ×2 (08:05→20:58)
[2017-07-10] MEDS: amLODIPine TAB* 5 MG PO SCH (08:05)
[2017-07-10] MEDS: Atorvastatin* 20 MG TAB PO SCH (08:05)
[2017-07-10] MEDS: Insulin LISPRO* 1 UNITS UNIT SUBCUT SCH ×3 (08:07→18:02)
--- NOTE | 2017-07-10 08:53 | PN ---
Subjective Date of Service: 07/10/17 Interval History: Ms. Epps reports that she is feeling well this afternoon. She denies chest pain, SOB, nausea, or abdominal pain. She reports some trouble extending her foot that is delaying progress with physical therapy. Objective Active Medications: Acetaminophen (Tylenol Tab*) 650 mg PO Q4H PRN Amlodipine Besylate (Norvasc Tab*) 5 mg PO DAILY JANNET Atorvastatin Calcium (Lipitor*) 20 mg PO QAM [facility]ANNET Bisacodyl (Dulcolax Supp*) 10 mg AR DAILY PRN Cyclobenzaprine HCl (Flexeril Tab*) 10 mg PO TID PRN Dextrose (D50w Syringe 50 Ml*) 12.5 gm IV PUSH .FOR FS < 60 - SS PRN Diphenhydramine HCl (Benadryl Iv*) 12.5 mg IV Q6H PRN Docusate Sodium (Colace Cap*) 100 mg PO BID JANNET Enoxaparin Sodium (Lovenox(*)) 40 mg SUBCUT Q24H JANNET Clindamycin HCl/Dextrose (Cleocin 600 Mg Ivpremix(*) Sdv) 600 mg in 50 mls @ 100 mls/hr IV Q8H JANNET Lactated Ringer's (Lactated Ringers 1000 Ml Bag*) 1,000 mls @ 100 mls/hr IV PER RATE JANNET Insulin Human Lispro (Humalog*) 0 units SUBCUT AC [facility]ANNET Lactulose (Lactulose*) 30 ml PO Q6H PRN Magnesium Hydroxide (Milk Of Magnesia Liq*) 30 ml PO BID JANNET Magnesium Hydroxide (Milk Of Magnesia Liq*) 30 ml PO Q6H PRN Morphine Sulfate (Morphine Inj (Syringe)*) 2 mg IV Q2H PRN Ondansetron HCl (Zofran Inj*) 4 mg IV Q6H PRN Ondansetron HCl (Zofran Tab*) 4 mg PO Q6H PRN Oxycodone HCl (Roxycodone Tab*) 10 mg PO Q4H PRN Oxycodone/Acetaminophen (Percocet 5/325 Tab*) 2 tab PO Q4H PRN Oxycodone/Acetaminophen (Percocet 5/325 Tab*) 1 tab PO Q4H PRN Pharmacy Profile Note (Coumadin Daily Reminder*) 1 note FOLLOW UP 1700 JANNET Polyethylene Glycol/Electrolytes (Miralax*) 17 gm PO DAILY PRN Vital Signs: Temp Pulse Resp BP Pulse Ox 98.2 F 81 18 122/53 94 07/10/17 15:41 07/10/17 15:41 07/10/17 16:46 07/10/17 15:41 07/10/17 16:00 Oxygen Devices in Use Now: Nasal Cannula Appearance: Female lying in bed in NAD Eyes: No Scleral Icterus Ears/Nose/Mouth/Throat: Mucous Membranes Moist Neck: Trachea Midline Respiratory: Symmetrical Chest Expansion and Respiratory Effort Cardiovascular: NL Sounds; No Murmurs; No JVD, No Edema Abdominal: NL Sounds; No Tenderness; No Distention Extremities: No Edema Skin: No Rash or Ulcers Neurological: Alert and Oriented x 3, NL Muscle Strength and Tone Result Diagrams: 07/10/17 05:40 07/10/17 05:40 Assess/Plan/Problems-Billing Assessment: Ms. Epps is a 61 yo female with a PMH of DM, HTN, and HLD who was admitted on 07/09/17 for right total knee replacement. - Patient Problems (1) Status post total right knee replacement Comment: - Management per ortho. - Pain meds prn with bowel regimen. - PT/OT. - Monitor H/H. (2) Diabetes mellitus SNOMED Code(s): 83926372 Comment: - BGs well controlled.. - Continue Lispro SS and resume Metformin on discharge. (3) Hyperlipemia Comment: - Continue atorvastatin. (4) Hypertension Comment: - BP is controlled. - Continue amlodipine, on tribenzor outpt (olmesartan, amlodpine, hctz). (5) DVT prophylaxis Comment: - Lovenox and Warfarin as per Ortho. (6) Full code status Comment: Status and Disposition: Disposition per ortho.
[2017-07-10] MEDS ORDERED: metFORMIN* 500 MG TAB PO SCH (09:00)
[2017-07-10] MEDS ORDERED: [UNRECOGNIZED DRUG - OTHER] PO SCH (09:00)
[2017-07-10] MEDS ORDERED: AMLODIPIN PO SCH (09:00)
[2017-07-10] MEDS ORDERED: HCTHIAZID PO SCH (09:00)
[2017-07-10] MEDS ORDERED: OLMESARTAN PO SCH (09:00)
--- NOTE | 2017-07-10 10:24 | PN ---
Progress Note - Progress Note Date of Service: 07/10/17 SOAP: Subjective: []Patient seen at bedside as well as once OOB in chair. She complains of decreased sensation of right foot, and worsened weakness of dorsiflexion. Last night dorsiflexion was intact, but less so this morning. She denies right knee pain, chest pain, shortness of breath, dizziness, nausea. Objective: [] Vital Signs Temp 98.0 F 07/10/17 07:12 Pulse 73 07/10/17 07:12 Resp 16 07/10/17 10:25 BP 109/61 07/10/17 07:12 Pulse Ox 97 07/10/17 10:24 Intake & Output 07/09/17 07/10/17 07/10/17 18:59 06:59 18:59 Intake Total 2850 1704 225 Output Total 255 600 Balance 2595 1104 225 Weight 272 lb 6.4 oz Intake: IV Fluids 2850 1004 ABX - CLINDAMYCIN 55 CLINDAMYCIN 900MG IV 50 LR 2800 949 Oral 700 225 Output: Groves 225 600 Residual 30 Groves 16 Fr 30 Laboratory Last Values Hgb 10.5 g/dl (12.0-16.0) L 07/10/17 05:40 Hct 32 % (35-47) L 07/10/17 05:40 Plt Count 188 10^3/ul (150-450) 07/10/17 05:40 MPV 8.0 um3 (7.4-10.4) 07/10/17 05:40 INR (Anticoag Therapy) 1.00 (0.77-1.02) 07/10/17 05:40 Sodium 134 mmol/L (133-145) 07/10/17 05:40 Potassium 3.9 mmol/L (3.5-5.0) 07/10/17 05:40 Chloride 102 mmol/L (101-111) 07/10/17 05:40 Carbon Dioxide 25 mmol/L (22-32) 07/10/17 05:40 Anion Gap 7 mmol/L (2-11) 07/10/17 05:40 BUN 19 mg/dL (6-24) 07/10/17 05:40 Creatinine 0.83 mg/dL (0.51-0.95) 07/10/17 05:40 Est GFR ( Amer) 90.5 (>60) 07/10/17 05:40 Est GFR (Non-Af Amer) 70.4 (>60) 07/10/17 05:40 BUN/Creatinine Ratio 22.9 (8-20) H 07/10/17 05:40 Glucose 140 mg/dL (70-100) H 07/10/17 05:40 POC Glucose (mg/dL) 159 mg/dL (70-100) H 07/09/17 17:22 Calcium 8.7 mg/dL (8.6-10.3) 07/10/17 05:40 General: Well appearing, NAD RLE: Right knee dressing CDI. Dressing changed and placed 4x4's and loose sebastian bandage. No obvious swelling or hematoma, but difficult to evaluate due to body habitus. Able to plantarflex ankle. Dorsiflexion is very weak. Sensation decreased throughout foot. After loosening dressing and patient getting up to chair her sensation improved from very minimal sensation throughout the foot to improvement of sensation throughout the entire foot, with dorsum and distal portion of plantar aspect with remaining decreased sensation. 2+ DP pulse. BL LE: Calves supple and nontender without erythema, edema or palpable cords Assessment: []POD 1 s/p right total knee arthroplasty 07/09 Dr Sierra Plan: []WBAT Discussed decreased sensation/ difficulty with dorsiflexion with Dr. Sierra who also saw this patient. Dressing was loosened. Recommendations of podus boot and two pillows under right knee to keep in slight flexion. PT/OT Lovenox, coumadin 8 mg tonight.
[2017-07-10] MEDS: Enoxaparin(*) 40 MG/0.4 ML SYR SUBCUT SCH (12:37)
[2017-07-10] MEDS ORDERED: Warfarin TAB(*) 4 MG PO ONE (17:00)
[2017-07-11] MEDS: oxyCODONE TAB* 5 MG TAB PO PRN ×5 (01:05→19:25)
[2017-07-11] MEDS: oxyCODONE/Acetamin 5/325 MG* TAB PO PRN ×5 (03:40→21:30)
[2017-07-11 05:45] LABS: Hematocrit 29 % (35-47); Hemoglobin 9.6 g/dl (12.0-16.0); Mean Platelet Volume 8.7 um3 (7.4-10.4); Platelet Count 165 10^3/ul (150-450)
[2017-07-11 05:53] LABS: INR 1.44 (0.77-1.02)
[2017-07-11] MEDS: Insulin LISPRO* 1 UNITS UNIT SUBCUT SCH ×3 (07:53→17:19)
--- NOTE | 2017-07-11 09:17 | PN ---
Progress Note - Progress Note Date of Service: 07/11/17 SOAP: Subjective: [] Patient seen at bedside. She denies right knee pain. She has been working on dorsiflexion overnight and does feel she has some improvement, also sensation of the right foot has returned to normal. Denies CP, SOB, dizziness or nausea. Objective: [] Vital Signs Temp 97.2 F 07/11/17 07:53 Pulse 84 07/11/17 07:53 Resp 17 07/11/17 07:53 BP 135/75 07/11/17 07:53 Pulse Ox 96 07/11/17 07:53 Intake & Output 07/10/17 07/11/17 07/11/17 18:59 06:59 18:59 Intake Total 2025 150 420 Output Total 650 700 350 Balance 1375 -550 70 Intake: IV Fluids 805 ABX - CLINDAMYCIN 105 LR 700 Oral 1220 150 420 Output: Urine 650 700 350 Other: Estimated Void Medium # Bowel Movements 1 Estimated Stool Amount Large Laboratory Last Values Hgb 9.6 g/dl (12.0-16.0) L 07/11/17 05:06 Hct 29 % (35-47) L 07/11/17 05:06 Plt Count 165 10^3/ul (150-450) 07/11/17 05:06 MPV 8.7 um3 (7.4-10.4) 07/11/17 05:06 INR (Anticoag Therapy) 1.44 (0.77-1.02) H 07/11/17 05:06 Sodium 134 mmol/L (133-145) 07/10/17 05:40 Potassium 3.9 mmol/L (3.5-5.0) 07/10/17 05:40 Chloride 102 mmol/L (101-111) 07/10/17 05:40 Carbon Dioxide 25 mmol/L (22-32) 07/10/17 05:40 Anion Gap 7 mmol/L (2-11) 07/10/17 05:40 BUN 19 mg/dL (6-24) 07/10/17 05:40 Creatinine 0.83 mg/dL (0.51-0.95) 07/10/17 05:40 Est GFR ( Amer) 90.5 (>60) 07/10/17 05:40 Est GFR (Non-Af Amer) 70.4 (>60) 07/10/17 05:40 BUN/Creatinine Ratio 22.9 (8-20) H 07/10/17 05:40 Glucose 140 mg/dL (70-100) H 07/10/17 05:40 POC Glucose (mg/dL) 133 mg/dL (70-100) H 07/11/17 07:37 Calcium 8.7 mg/dL (8.6-10.3) 07/10/17 05:40 General: Well appearing, NAD RLE: Right knee dressing CDI. Dressing changed this morning by Dr Sierra without complication. Able to plantarflex ankle. Dorsiflexion is improved from yesterday, though remains weak. Sensation to light touch has returned to "normal " throughout the entire foot. 2+ DP pulse. BL LE: Calves supple and nontender without erythema, edema or palpable cords Assessment: []POD 2 s/p right total knee arthroplasty 07/09 Dr Sierra Plan: []WBAT Continue two pillows under operative knee to keep knee flexed, Podus boot to keep ankle in dorsiflexion PT/OT Lovenox, coumadin 6 mg tonight.
[2017-07-11] MEDS: Magnesium Hydroxide LIQ* 30 ML UDC PO SCH ×2 (09:36→19:26)
[2017-07-11] MEDS: amLODIPine TAB* 5 MG PO SCH (09:37)
[2017-07-11] MEDS: Docusate CAP* 100 MG PO SCH ×2 (09:38→19:26)
[2017-07-11] MEDS: Atorvastatin* 20 MG TAB PO SCH (09:38)
[2017-07-11] MEDS: Enoxaparin(*) 40 MG/0.4 ML SYR SUBCUT SCH (12:30)
--- NOTE | 2017-07-11 13:05 | PN ---
Subjective Date of Service: 07/11/17 Interval History: Patient feeling better today. Pain decreased and well controlled with medication. 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 Patient states she had a BM since surgery, is urinating, denies N/V, CP, SOB, F/C, abdominal pain, diarrhea, or other pain. Patient states she has increased pain with walking but was able to walk well with PT. Family History: Unchanged from Admission Social History: Unchanged from Admission Past Medical History: Unchanged from Admission Objective Active Medications: Acetaminophen (Tylenol Tab*) 650 mg PO Q4H PRN PRN Reason: PAIN OR TEMPERATURE Amlodipine Besylate (Norvasc Tab*) 5 mg PO DAILY [facility] Last Admin: 07/11/17 09:37 Dose: 5 mg Atorvastatin Calcium (Lipitor*) 20 mg PO QAM [facility] Last Admin: 07/11/17 09:38 Dose: 20 mg Bisacodyl (Dulcolax Supp*) 10 mg ND DAILY PRN PRN Reason: constipation Cyclobenzaprine HCl (Flexeril Tab*) 10 mg PO TID PRN PRN Reason: SPASMS Dextrose (D50w Syringe 50 Ml*) 12.5 gm IV PUSH .FOR FS < 60 - SS PRN PRN Reason: FS < 60 Diphenhydramine HCl (Benadryl Iv*) 12.5 mg IV Q6H PRN PRN Reason: PRURITIS Docusate Sodium (Colace Cap*) 100 mg PO BID [facility] Last Admin: 07/11/17 09:38 Dose: 100 mg Enoxaparin Sodium (Lovenox(*)) 40 mg SUBCUT Q24H [facility] Last Admin: 07/11/17 12:30 Dose: 40 mg Insulin Human Lispro (Humalog*) 0 units SUBCUT AC [facility] PRN Reason: Protocol Last Admin: 07/11/17 12:29 Dose: Not Given Lactulose (Lactulose*) 30 ml PO Q6H PRN PRN Reason: constipation Magnesium Hydroxide (Milk Of Magnesia Liq*) 30 ml PO BID [facility] Last Admin: 07/11/17 09:36 Dose: Not Given Magnesium Hydroxide (Milk Of Magnesia Liq*) 30 ml PO Q6H PRN PRN Reason: constipation Morphine Sulfate (Morphine Inj (Syringe)*) 2 mg IV Q2H PRN PRN Reason: PAIN Last Admin: 07/10/17 02:15 Dose: 2 mg Ondansetron HCl (Zofran Inj*) 4 mg IV Q6H PRN PRN Reason: nausea Ondansetron HCl (Zofran Tab*) 4 mg PO Q6H PRN PRN Reason: NAUSEA Oxycodone HCl (Roxycodone Tab*) 10 mg PO Q4H PRN PRN Reason: SEVERE PAIN Last Admin: 07/11/17 09:36 Dose: 10 mg Oxycodone/Acetaminophen (Percocet 5/325 Tab*) 2 tab PO Q4H PRN PRN Reason: PAIN Last Admin: 07/11/17 12:30 Dose: 2 tab Oxycodone/Acetaminophen (Percocet 5/325 Tab*) 1 tab PO Q4H PRN PRN Reason: PAIN Pharmacy Profile Note (Coumadin Daily Reminder*) 1 note FOLLOW UP 1700 JANNET Last Admin: 07/10/17 16:46 Dose: 1 note Polyethylene Glycol/Electrolytes (Miralax*) 17 gm PO DAILY PRN PRN Reason: Constipation Vital Signs - 8 hr 07/11/17 07/11/17 07/11/17 05:37 05:42 07:37 Temperature Pulse Rate Respiratory 16 16 18 Rate Blood Pressure (mmHg) O2 Sat by Pulse Oximetry 07/11/17 07/11/17 07/11/17 07:53 08:00 09:36 Temperature 97.2 F Pulse Rate 84 Respiratory 17 18 18 Rate Blood Pressure 135/75 (mmHg) O2 Sat by Pulse 96 96 Oximetry 07/11/17 07/11/17 07/11/17 09:38 11:34 12:28 Temperature 98.1 F Pulse Rate 87 Respiratory 18 16 18 Rate Blood Pressure 131/72 (mmHg) O2 Sat by Pulse 94 Oximetry 07/11/17 12:30 Temperature Pulse Rate Respiratory 20 Rate Blood Pressure (mmHg) O2 Sat by Pulse Oximetry Oxygen Devices in Use Now: None Appearance: Patient is a 61yo female who appears stated age and is sitting in the bed in NAD. Eyes: No Scleral Icterus, PERRLA Ears/Nose/Mouth/Throat: NL Teeth, Lips, Gums, Clear Oropharnyx, Mucous Membranes Moist Neck: NL Appearance and Movements; NL JVP, Trachea Midline Respiratory: Symmetrical Chest Expansion and Respiratory Effort, Clear to Auscultation Cardiovascular: NL Sounds; No Murmurs; No JVD, RRR, - - 1+ edema in B/L LE. Abdominal: NL Sounds; No Tenderness; No Distention, No Hepatosplenomegaly Lymphatic: No Cervical Adenopathy Extremities: No Edema, No Clubbing, Cyanosis Skin: No Rash or Ulcers, No Nodules or Sclerosis Neurological: Alert and Oriented x 3, NL Sensation, - - 2/5 strength with dorsiflexion of right foot. Result Diagrams: 07/11/17 05:06 07/10/17 05:40 Assess/Plan/Problems-Billing Assessment: Ms. Epps is a 61 yo female with a PMH of DM, HTN, and HLD who was admitted on 07/09/17 for right total knee replacement. - Patient Problems (1) Status post total right knee replacement Current Visit: Yes Status: Acute Code(s): Z96.651 - PRESENCE OF RIGHT ARTIFICIAL KNEE JOINT SNOMED Code(s): 9291201053058 Comment: Management per ortho. Pain meds prn with bowel regimen. Has had BM PT/OT. Performing well. Monitor H/H. Stable. (2) Diabetes mellitus Current Visit: No Status: Acute Code(s): E11.9 - TYPE 2 DIABETES MELLITUS WITHOUT COMPLICATIONS SNOMED Code(s): 22541420 Comment: BGs well controlled.. Continue Lispro SS and resume Metformin on discharge. (3) Depression Current Visit: No Status: Acute Code(s): F32.9 - MAJOR DEPRESSIVE DISORDER, SINGLE EPISODE, UNSPECIFIED SNOMED Code(s): 47904905 Comment: Euthymic (4) Hyperlipemia Current Visit: No Status: Acute Code(s): E78.5 - HYPERLIPIDEMIA, UNSPECIFIED SNOMED Code(s): 26678945 Comment: Continue atorvastatin. (5) Hypertension Current Visit: No Status: Acute Code(s): I10 - ESSENTIAL (PRIMARY) HYPERTENSION SNOMED Code(s): 03177678 Comment: BP is controlled. Continue amlodipine, on tribenzor outpt (olmesartan, amlodpine, hctz). Reintroduce as tolerated. Resume on D/C. (6) DVT prophylaxis Current Visit: No Status: Acute Code(s): MJC0985 - SNOMED Code(s): 129386695 Comment: Lovenox and Warfarin as per Ortho. INR 1.44 this AM. (7) Full code status Current Visit: No Status: Acute Code(s): Z78.9 - OTHER SPECIFIED HEALTH STATUS SNOMED Code(s): 028645917 Comment: Status and Disposition: Disposition per ortho.
[2017-07-11] MEDS ORDERED: Warfarin TAB(*) 6 MG PO ONE (17:00)
[2017-07-12] MEDS: oxyCODONE TAB* 5 MG TAB PO PRN ×3 (00:45→10:48)
[2017-07-12] MEDS: oxyCODONE/Acetamin 5/325 MG* TAB PO PRN ×3 (03:59→13:24)
[2017-07-12 05:45] LABS: Hematocrit 27 % (35-47); Hemoglobin 8.8 g/dl (12.0-16.0); Mean Platelet Volume 8.4 um3 (7.4-10.4); Platelet Count 152 10^3/ul (150-450)
[2017-07-12] MEDS: Magnesium Hydroxide LIQ* 30 ML UDC PO SCH (08:30)
[2017-07-12] MEDS: Docusate CAP* 100 MG PO SCH (08:30)
[2017-07-12] MEDS: Insulin LISPRO* 1 UNITS UNIT SUBCUT SCH ×2 (08:35→12:00)
[2017-07-12] MEDS: amLODIPine TAB* 5 MG PO SCH (08:36)
[2017-07-12] MEDS: Atorvastatin* 20 MG TAB PO SCH (08:36)
--- NOTE | 2017-07-12 10:04 | PN ---
Progress Note - Progress Note Date of Service: 07/12/17 SOAP: Subjective: []Patient seen OOB in chair. She is in good spirits today and has much improvement of dorsiflexion. Denies CP, SOB, dizziness, nausea. right foot numbness has resolved. Objective: [] Vital Signs Temp 99.0 F 07/12/17 07:26 Pulse 72 07/12/17 07:26 Resp 18 07/12/17 08:36 BP 125/61 07/12/17 07:26 Pulse Ox 95 07/12/17 08:00 Intake & Output 07/11/17 07/12/17 07/12/17 18:59 06:59 18:59 Intake Total 1285 600 Output Total 950 800 300 Balance 335 -200 -300 Intake: Oral 1285 600 Output: Urine 950 800 300 Other: Estimated Stool Amount Medium Laboratory Last Values Hgb 8.8 g/dl (12.0-16.0) L 07/12/17 05:09 Hct 27 % (35-47) L 07/12/17 05:09 Plt Count 152 10^3/ul (150-450) 07/12/17 05:09 MPV 8.4 um3 (7.4-10.4) 07/12/17 05:09 INR (Anticoag Therapy) 2.00 (0.77-1.02) H 07/12/17 05:09 Sodium 134 mmol/L (133-145) 07/10/17 05:40 Potassium 3.9 mmol/L (3.5-5.0) 07/10/17 05:40 Chloride 102 mmol/L (101-111) 07/10/17 05:40 Carbon Dioxide 25 mmol/L (22-32) 07/10/17 05:40 Anion Gap 7 mmol/L (2-11) 07/10/17 05:40 BUN 19 mg/dL (6-24) 07/10/17 05:40 Creatinine 0.83 mg/dL (0.51-0.95) 07/10/17 05:40 Est GFR ( Amer) 90.5 (>60) 07/10/17 05:40 Est GFR (Non-Af Amer) 70.4 (>60) 07/10/17 05:40 BUN/Creatinine Ratio 22.9 (8-20) H 07/10/17 05:40 Glucose 140 mg/dL (70-100) H 07/10/17 05:40 POC Glucose (mg/dL) 138 mg/dL (70-100) H 07/12/17 07:11 Calcium 8.7 mg/dL (8.6-10.3) 07/10/17 05:40 General: Well appearing, NAD RLE: Right knee dressing changed, incision with well approximated wound edges, CDI, no surrounding erythema, no obvious hematoma or effusion. Redressed wtih 4x4's and loose sebastian bandage. Able to plantarflex ankle. Dorsiflexion is much improved from yesterday, able to wiggle toes. Sensation to light touch reported as "normal" throughout the entire foot. 2+ DP pulse. Capillary refill less than two seconds distally. BL LE: Calves supple and nontender without erythema, edema or palpable cords Assessment: []POD 3 s/p right total knee arthroplasty 07/09 Dr Sierra Plan: []WBAT Continue two pillows under operative knee to keep knee flexed, Podus boot to keep ankle in dorsiflexion PT/OT May stop Lovenox, coumadin 0 mg tonight. DC home today, patient agreeable and comfortable with decision to DC today. Will F/U with Dr Sierra early next week, calling sooner with any concerns.
[2017-07-12 11:41] VITALS: BP 117/63
--- NOTE | 2017-07-13 15:11 | DS ---
DISCHARGE SUMMARY: DATE OF ADMISSION: 07/09/17 DATE OF DISCHARGE: PROVIDER: Do Sierra MD * (DICTATED BY NICOLAS WAHL) BAND EDGER: NICOLAS Casey PRE-OP DIAGNOSIS: Severe end-stage degenerative osteoarthritis of the right knee joint. OPERATIVE PROCEDURE: Right total knee arthroplasty. HISTORY: Ms. Epps is a 61-year-old female with years of increasingly severe right knee pain. She failed conservative treatment with anti-inflammatories, pain medication, intra-articular injections, and physical therapy, she elected to undergo a right total knee arthroplasty. HOSPITAL COURSE: The patient was admitted to [facility] on . She underwent a right total knee arthroplasty initially without any known complication. She recovered briefly in the PACU and then was transferred to the short stay surgical unit in stable condition. She was seen both by the orthopedic team and by the hospitalist service on postop day #1. It was noted that the patient was having difficulty dorsiflexing her right foot. She also had decreased sensation throughout her right foot. Her dressing was loosened. A pillow was placed under her knee to keep her knee in flexion and a Podus boot was placed to keep her ankle in dorsiflexion. Dr. Sierra also saw the patient at this time, agreeing with this intervention. Her hemoglobin was 10.5, hematocrit 32, INR 1.0. Postop day #2, the patient was well appearing, in no acute distress. Dressing was changed this morning without complication. Dorsiflexion was improved from yesterday, though still weak. Sensation to light touch has returned to normal throughout the entire foot. 2+ dorsalis pedis pulse. The patient continued to have difficulty with physical therapy and due to feeling that her right foot was dragging. Postop day #3, the patient was seen at bedside. She is in good spirits. Her right knee dressing was changed. Incision with well approximated wound edges, clean, dry, and intact. No surrounding erythema. No obvious hematoma or effusion. The patient was able to both plantar flex and dorsiflex her right ankle with much improvement from yesterday. She was able to wiggle her toes. Sensation to light touch was reported as normal throughout the entire right foot with 2+ dorsalis pedis pulse. Capillary refill less than 2 seconds distally. Hemoglobin 8.8, hematocrit 27, INR 2.0. Vital signs: Temperature 99.0, pulse 72 , respiratory rate 18, blood pressure 125/61, pulse ox 95%. The patient was deemed to be medically and orthopedically stable for discharge home. The patient's goals were met with physical therapy. DISCHARGE MEDICATIONS: Resumed at home include: 1. Olmesartan/amlodipine/hydrochlorothiazide 1 tab p.o. q.a.m. 2. Atorvastatin 20 mg p.o. q.a.m. 3. Metformin 500 mg p.o. q.a.m. NOTE: Naproxen 440 mg p.o. q.a.m. was discontinued. New medications at home: 1. Acetaminophen 650 mg p.o. q.4 hours p.r.n. 2. Docusate 100 mg p.o. b.i.d. p.r.n. 3. Percocet 5/325 one to two tabs every 4 to 6 hours as needed for pain, max daily dose of 10. 4. Warfarin 2 mg tablets 1 to 3 tabs per day, with dosing determined by INR draws. ACTIVITY INSTRUCTIONS: The patient will be weightbearing as tolerated. Okay to shower on postop day #3 but do not submerge wound. Call the Orthopedic office for increased drainage, increased redness, increased pain, or increased fever. Go to the emergency room with shortness of breath or chest pain. Continue physical therapy exercises as shown. Home nurses will do wound checks and INR draws on Mondays and . Coumadin dosing 07/12/17, 0 mg; through 07/15/17, please take 2 mg daily, and then on 07/16/17 INR will be rechecked. Pain control with Percocet 5/325 one to two tabs by mouth every 4 to 6 hours as needed for pain, max daily dose of 10 tabs. Please follow up with Dr. Sierra approximately 3 days after discharge. Please continue to keep the operative knee slightly flexed with 2 pillows underneath of it. Please keep your ankle flexed and continue to work towards improvement of dorsiflexion. NICOLAS WAHL [id number]/[facility] #: [id number] [place]
== END 2017-07-12 13:35 | disposition home health service (06) | DRG 470 ==
LOC: AA 09:20 → SSU 10:45
PROVIDERS: ADMIT Orthopaedic Surgery Adult Reconstructive Orthopaedic Surgery; ATTEND Orthopaedic Surgery Adult Reconstructive Orthopaedic Surgery
PROC: 0SRC069 Replacement of Right Knee Joint with Oxidized Zirconium on Polyethylene Synthetic Substitute, Cemented, Open Approach (ICD-10-PCS; principal; 2017-07-09 10:00)
DX: M17.11 Unilateral primary osteoarthritis, right knee (principal); Z68.42 Body mass index [BMI] 45.0-49.9, adult; I10 Essential (primary) hypertension; E11.9 Type 2 diabetes mellitus without complications; Z96.652 Presence of left artificial knee joint; E78.5 Hyperlipidemia, unspecified; F32.9 Major depressive disorder, single episode, unspecified; G58.8 Other specified mononeuropathies; G89.29 Other chronic pain; M54.9 Dorsalgia, unspecified; E66.01 Morbid (severe) obesity due to excess calories; F41.9 Anxiety disorder, unspecified; M25.761 Osteophyte, right knee; M89.8X6 Other specified disorders of bone, lower leg; R20.0 Anesthesia of skin; Z79.84 Long term (current) use of oral hypoglycemic drugs; Z90.710 Acquired absence of both cervix and uterus; Z88.0 Allergy status to penicillin; Z80.0 Family history of malignant neoplasm of digestive organs; Z83.3 Family history of diabetes mellitus; Z82.49 Family history of ischemic heart disease and other diseases of the circulatory system; Z82.61 Family history of arthritis; Z83.49 Family history of other endocrine, nutritional and metabolic diseases; Z98.51 Tubal ligation status; Z79.01 Long term (current) use of anticoagulants
CPT/HCPCS: 36415; 80048; 85014; 85018; 85049; 85610; 88305; 88311; 94760; A9270-GY; C1776; J1100; J1170; J1240; J1650; J1885; J2250; J2270; J2405; J2704; J2795; J3010

== ENCOUNTER 2017-11-14 18:53 | Emergency (ER) | payer OTHER ==
[2017-11-14 19:10] VITALS: BP 133/69
--- NOTE | 2017-11-14 19:39 | UC ---
Lower Extremity/Ankle HPI - HPI Summary HPI Summary: Patient states that she missed a step and rolled her right ankle on her stairs 2 days ago. She is complaining of ongoing pain to the inside of her right ankle. She denies any hip or knee pain. She denies any other injuries and offers no other complaints. - History of Current Complaint Chief Complaint: UCLowerExtremity Stated Complaint: RT ANKLE INJURY Time Seen by Provider: 11/14/17 19:32 Hx Obtained From: Patient Onset/Duration: Sudden Onset Pain Intensity: 4 Aggravating Factor(s): Ambulation Alleviating Factor(s): Rest Able to Bear Weight: Yes - Allergies/Home Medications Allergies/Adverse Reactions: Allergies Allergy/AdvReac Type Severity Reaction Status Date / Time Penicillins Allergy Rash Verified 11/14/17 19:10 Home Medications: Home Medications Acetaminophen TAB* [Tylenol TAB*] 1,000 mg PO Q4H PRN 11/14/17 [History Confirmed 11/14/17] PMH/Surg Hx/FS Hx/Imm Hx Endocrine History: Diabetes, Dyslipidemia Cardiovascular History: Hypertension - Surgical History Surgical History: Yes Surgery Procedure, Year, and Place: 1963-TONSILLECTOMY. 2009-UMBILICAL HERNIA REPAIR. HYSTERECTOMY-2002. 1996-TUBAL LIGATION. 1999-LEFT BREAST LUMPECTOMY - Family History Known Family History: Positive: Other - ca - Social History Occupation: Employed Full-time Lives: With Family Alcohol Use: None Substance Use Type: None Smoking Status (MU): Never Smoked Tobacco - Immunization History Most Recent Influenza Vaccination: 2017 Most Recent Pneumonia Vaccination: HAS HAD Vaccination Up to Date: Yes Review of Systems Constitutional: Negative Skin: Negative Eyes: Negative ENT: Negative Respiratory: Negative Cardiovascular: Negative Gastrointestinal: Negative Genitourinary: Negative Motor: Negative Neurovascular: Negative Musculoskeletal: Other: - R ankle pain Neurological: Negative Psychological: Negative Is Patient Immunocompromised?: No All Other Systems Reviewed And Are Negative: Yes Physical Exam Triage Information Reviewed: Yes Appearance: Well-Appearing Vital Signs: Initial Vital Signs Temp 97.8 F 11/14/17 19:05 Pulse 83 11/14/17 19:05 Resp 16 11/14/17 19:05 BP 133/69 11/14/17 19:05 Pulse Ox 97 11/14/17 19:05 Vital Signs Reviewed: Yes Eyes: Positive: Conjunctiva Clear ENT: Positive: Normal ENT inspection Neck: Positive: Supple, Nontender, No Lymphadenopathy Respiratory: Positive: Lungs clear, Normal breath sounds Cardiovascular: Positive: RRR, No Murmur Abdomen Description: Positive: Nontender, No Organomegaly, Soft Bowel Sounds: Positive: Present Musculoskeletal: Positive: Other: - Right lower extremity: Hip, knee and Achilles are nontender. Patient notes tenderness to the medial side of the right ankle but no gross deformity or discoloration appreciated. The foot is nontender and has full sensorivascular motor function. Neurological: Positive: Alert Psychological: Positive: Age Appropriate Behavior Skin Exam: Normal Diagnostics - Radiology No standard instances Radiology Interpretation Completed By: Radiologist - IMPRESSION: 1. DEGENERATIVE CHANGES OF THE RIGHT ANKLE WITHOUT RADIOGRAPHICALLY APPARENT ACUTE FRACTURE OR DISLOCATION. 2. APPEARANCE OF THE SUBCUTANEOUS TISSUE COULD BE CONSISTENT WITH CHRONIC SWELLING RELATED TO VENOUS OR LYMPHATIC INSUFFICIENCY. Lower Extremity Course/Dx - Course Course Of Treatment: no fx or dislocation - Differential Dx/Diagnosis Provider Diagnoses: Sprain R ankle Discharge - Sign-Out/Discharge Documenting (check all that apply): Patient Departure - Discharge Plan Condition: Stable Disposition: HOME Patient Education Materials: Ankle Sprain (DC) Referrals: Dania Champion MD [Primary Care Provider] - If Needed Do Sierra MD [Medical Doctor] - 7 Days Additional Instructions: USE THE BELLE AND YOUR CANE UNTIL CLEARED - Billing Disposition and Condition Condition: STABLE Disposition: Home Attestation Statement User Type: Provider - I was available for consult. This patient was seen by the [facility]. The patient was not presented to, seen by, or examined by me. -Ashley
--- NOTE | 2017-11-14 19:43 | RAD ---
INDICATION: Medial ankle pain after " stepped off funny" COMPARISON: None. TECHNIQUE: 3 views of the right ankle were obtained. FINDINGS: There is no radiographically apparent acute fracture or dislocation. Degenerative changes include sclerotic change of the tibiotalar joint with marginal osteophyte formation. There is an enthesophyte at the origin of the plantar fascia on the calcaneal tubercle. There is thickening and induration of the subcutaneous tissue that appears to be chronic. IMPRESSION: 1. DEGENERATIVE CHANGES OF THE RIGHT ANKLE WITHOUT RADIOGRAPHICALLY APPARENT ACUTE FRACTURE OR DISLOCATION. 2. APPEARANCE OF THE SUBCUTANEOUS TISSUE COULD BE CONSISTENT WITH CHRONIC SWELLING RELATED TO VENOUS OR LYMPHATIC INSUFFICIENCY. If the patient's symptoms persist, follow-up imaging is recommended.
== END 2017-11-14 20:05 | disposition home or self-care (01) ==
LOC: UCCORT 18:53
DX: S93.401A Sprain of unspecified ligament of right ankle, initial encounter (principal); W10.9XXA Fall (on) (from) unspecified stairs and steps, initial encounter; Y93.01 Activity, walking, marching and hiking; Y92.9 Unspecified place or not applicable; Z88.0 Allergy status to penicillin; E11.9 Type 2 diabetes mellitus without complications; I10 Essential (primary) hypertension
CPT/HCPCS: 99212; G0463